=== PATIENT | male | born 1945 | race Caucasian/White ===

== ENCOUNTER 2018-09-18 09:14 | Inpatient (IN) | payer OTHER, BC ==
--- NOTE | 2018-09-18 09:59 | PDOC ---
History of Present Illness - General Chief Complaint: Chronic pain Stated Complaint: SENT BY PCP Time Seen by Provider: 09/18/18 09:35 History Source: Patient Exam Limitations: No Limitations - History of Present Illness Initial Comments: 09/18/18 09:53 73y M hx of glaucoma BPH, DM, presents with back pain w/ L4/L5 radiculopathy with progressive pain and weakness - was seen by his orthopedic doctor and sent to the ED for evaluation. Pain radiates down the L leg, Pt notes that it has gotten worsening apin and it is more difficult to ambulate due to pain and weakness on his L leg. Pt was scheduled for disctectomy and fusion of L4/5. 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 Pt denies any fever/chills,cough, cp, n/v, abd pain, back pain, urinary or bowel incontinence (has baseline difficulty urinating c/w his bph, but no changes), dysuria. social: retired, denies recreational drug use family hx: reviewed and noncontributory Ortho: Dr French No PMD Past History - Past Medical History Allergies/Adverse Reactions: Allergies Allergy/AdvReac Type Severity Reaction Status Date / Time No Known Allergies Allergy Verified 09/18/18 09:18 Home Medications: Ambulatory Orders Cyclobenzaprine HCl 10 mg PO DAILY 09/18/18 Glyburide 2.5 mg PO BID 09/18/18 Oxycodone HCl/Acetaminophen [Oxycodone-Acetaminophen 10-325] 1 each PO BID PRN 09/18/18 Sitagliptin Phos/Metformin HCl [Janumet 50-1,000 mg Tablet] 1 each PO BID COPD: No Diabetes: Yes Other medical history: l4, l5 disc issues - Suicide/Smoking/Psychosocial Hx Smoking History: Never smoked Hx Alcohol Use: No Drug/Substance Use Hx: No Review of Systems - Review of Systems Able to Perform ROS?: Yes Comments:: 09/18/18 10:38 Constitutional - no reported Fever, Chills, HEENT: no reported vision changes, sore throat Respiratory: no reported cough, sob, hemoptysis Cardiac: no reported chest pain, palpitations, light headedness, leg swelling Abd/GI: no reported abd pain, nausea, vomiting, blood per rectum, melena, diarrhea : no reported dysuria, frequency, discharge Musculskelatal - +back pain, L leg pain/weakness no reported joint swelling skin - no reported bruising, erythema, rash neurological: no reported headache, numbness, tingling, ataxia, hematologic: no reported easy bruising, easy bleeding *Physical Exam - Vital Signs Last Vital Signs Temp Pulse Resp BP Pulse Ox 98.9 F 88 16 127/79 99 09/18/18 09:15 09/18/18 09:15 09/18/18 09:15 09/18/18 09:15 09/18/18 09:15 - Physical Exam Comments: 09/18/18 10:39 GENERAL: The patient is awake, alert, and fully oriented, Nontoxic - in no acute distress. HEAD: Normocephalic, atraumatic. EYES: extraocular movements intact, sclera anicteric, conjunctiva clear. ENT: Normal voice, Moist mucous membranes. NECK: Normal range of motion, supple LUNGS: Breath sounds equal, clear to auscultation bilaterally. No wheezes, no rhonchi, no rales. HEART: Regular rate and rhythm, normal S1 and S2 without murmur, rub or gallop. ABDOMEN: Soft, nontender, normoactive bowel sounds. No guarding, no rebound. . No CVA tenderness EXTREMITIES: no focal ttp spine, no erythema/induration/fluctuance/stepoffs, NEUROLOGICAL: No facial assymetry, Normal speech, LLE 5-/5 (possibly secondary to pain), RLE 5/5, sensation intact throughout PSYCH: Normal mood, normal affect. SKIN: Warm, Dry, normal turgor, Moderate Sedation - Procedure Monitoring Vital Signs: Procedure Monitoring Vital Signs Temperature 98.9 F 09/18/18 09:15 Pulse Rate 88 09/18/18 09:15 Respiratory Rate 16 09/18/18 09:15 Blood Pressure 127/79 09/18/18 09:15 O2 Sat by Pulse Oximetry (%) 99 09/18/18 09:15 Heart Score/ECG Review - ECG Impressions Comment:: 09/18/18 10:42 Twelve-lead EKG was performed and reviewed by me. There is normal sinus rhythm with a normal rate. Rate of 88 Left Anterior fascicular block No ST changes suggestive of acute ischemia ED Treatment Course - LABORATORY CBC & Chemistry Diagram: 09/18/18 10:32 09/18/18 10:32 Medical Decision Making - Medical Decision Making 09/18/18 10:40 73y M hx presenting with worsening back pain and L leg weakness plan for surgery by ortho on thursday no signs of cauda equina will obtain preop labs pain control anticipate admission 09/18/18 12:36 The patient's blood work was reviewed and was unremarkable will admit the patient for further management of his back pain and pending surgery Thursday by Dr. Wen The case was discussed with Dr. Ron, agreed with admisison for further management stable for med surg Case discussed in detail with admitting physician including history, physical exam and ancillary studies. Admitting physician has assumed care for the patient, will follow all pending diagnostics and will complete the evaluation and treatment. *DC/Admit/Observation/Transfer Diagnosis at time of Disposition: Back pain at L4-L5 level Radiculopathy Qualifiers: Spinal region: lumbar Qualified Code(s): M54.16 - Radiculopathy, lumbar region - Discharge Dispostion Condition at time of disposition: Stable Decision to Admit order: Yes - Referrals Referrals: Ramiro Wen MD [Primary Care Provider] - - Patient Instructions - Post Discharge Activity
[2018-09-18] MEDS ORDERED: morphine CARPU-JECT 2 MG/1 ML DISP.SYRIN IVPUSH ONE (10:42)
[2018-09-18 10:54] LABS: BASO % 0.2 % (0-2.0); HEMATOCRIT 39.5 % (35.4-49); MCH 30.1 pg (25.7-33.7); MCHC 35.4 g/dl (32.0-35.9); MEAN CELL VOLUME 85.1 fl (80-96); MEAN PLT VOLUME 8.8 fl (7.5-11.1); MONO % 7.1 % (3.8-10.2); NEUT % 66.7 % (42.8-82.8); PLATELET COUNT 145 K/MM3 (134-434); RBC 4.64 M/mm3 (4.00-5.60); RDW 13.9 % (11.9-15.9)
[2018-09-18 11:08] LABS: INR 1.13 (0.83-1.09); PROTHROMBIN TIME (PATIENT) 13.3 SEC (9.7-13.0)
[2018-09-18 11:27] LABS: ALBUMIN 3.8 g/dl (3.4-5.0); ALK PHOS 103 U/L (45-117); ANION GAP 6 MMOL/L (8-16); BILIRUBIN,TOTAL 1.5 mg/dL (0.2-1); BLOOD UREA NITROGEN 17 mg/dL (7-18); CHLORIDE 102 mmol/L (98-107); CO2 29 mmol/L (21-32); CREATININE 0.9 mg/dL (0.55-1.3); GLUCOSE,RANDOM 129 mg/dL (74-106); POTASSIUM 3.6 mmol/L (3.5-5.1); SGOT/AST 10 U/L (15-37); SGPT/ALT 21 U/L (13-61); SODIUM 137 mmol/L (136-145); TOT PROT 6.9 g/dl (6.4-8.2)
[2018-09-18] MEDS ORDERED: MORPHINE SULFATE 2 MG/ML VIAL ONE (11:37)
[2018-09-18 12:16] LABS: URINE APPEARANCE CLEAR; URINE BILIRUBIN NEGATIVE (<2.0 mg/dL); URINE COLOR LTYELLOW; URINE GLUCOSE (UA) 3+ (NEGATIVE); URINE KETONE NEGATIVE (NEGATIVE); URINE LEUK ESTERASE NEGATIVE (NEGATIVE); URINE NITRITE NEGATIVE (NEGATIVE); URINE PROTEIN NEGATIVE (NEGATIVE); URINE UROBILINOGEN NEGATIVE mg/dL (0.2-1.0)
[2018-09-18] MEDS ORDERED: MORPHINE SULFATE 2 MG/ML VIAL IVPUSH PRN (13:17)
--- NOTE | 2018-09-18 13:22 | HP ---
CHIEF COMPLAINT: back pain PCP: HISTORY OF PRESENT ILLNESS: The patient is a 73 year old Omani speaking male with a PMH of back pain, s/p surgery in 1995, DMII, glaucoma, BPH that was referred to the hospital by his Orthopedic Surgeon for L4 L5 fusion due to radiculopathy and weakness in left lower extremity. The patient has been complaining of back pain and weakness since July 2017. He went to ED in [place] where he was given injections and had x ray done. After he came back to [place], he started following Dr Wen, had imaging studies done and was referred to [facility] for surgery. The patient is complaining of severe lower back pain; 5/10 when sitting and 10/ 10 when walking. It is located in lower back, radiating to LLE, associated with weakness. He denies numbness, paresthesia. The patient denies trauma, fever, chills, chest pain, palpitations, urinary/bowel incontinence. 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 Family History: parents: due to TB grandmother: DM siblings: DMII 2 healthy children Allergies No Known Allergies Allergy (Verified 09/18/18 09:18) HOME MEDICATIONS: Home Medications Medication Instructions Recorded Cyclobenzaprine HCl 10 mg PO DAILY 09/18/18 Glyburide 2.5 mg PO BID 09/18/18 Oxycodone HCl/Acetaminophen 1 each PO BID PRN 09/18/18 [Oxycodone-Acetaminophen 10-325] Sitagliptin Phos/Metformin HCl 1 each PO BID 09/18/18 [Janumet 50-1,000 mg Tablet] REVIEW OF SYSTEMS CONSTITUTIONAL: Absent: fever, chills, diaphoresis, generalized weakness, malaise, loss of appetite, weight change HEENT: Absent: rhinorrhea, throat pain, throat swelling, difficulty swallowing, mouth swelling CARDIOVASCULAR: Absent: chest pain, syncope, palpitations, irregular heart rate, lightheadedness , peripheral edema RESPIRATORY: Absent: cough, shortness of breath, dyspnea with exertion, orthopnea, wheezing GASTROINTESTINAL: Absent: abdominal pain, abdominal distension, nausea, vomiting, diarrhea, constipation, GENITOURINARY: Absent: dysuria, frequency, urgency, hesitancy, hematuria, flank pain MUSCULOSKELETAL: back pain, left leg pain and weakness Absent: myalgia, arthralgia, joint swelling, neck pain SKIN: Absent: rash, itching, pallor NEUROLOGIC: Absent: headache, focal weakness or paresthesias, dizziness, unsteady gait, seizure, mental status changes, bladder or bowel incontinence PSYCHIATRIC: Absent: anxiety, depression. PHYSICAL EXAMINATION Vital Signs - 24 hr 09/18/18 09:15 Temperature 98.9 F Pulse Rate 88 Respiratory 16 Rate Blood Pressure 127/79 O2 Sat by Pulse 99 Oximetry (%) GENERAL: Awake, alert, and fully oriented, in no acute distress. HEAD: Normal with no signs of trauma. EYES: Extraocular movements intact, sclera anicteric, conjunctiva clear. EARS, NOSE, THROAT: Moist mucous membranes. NECK: Normal range of motion, supple without lymphadenopathy, JVD, or masses. LUNGS: Breath sounds equal, clear to auscultation bilaterally. No wheezes, and no crackles. HEART: Regular rate and rhythm, normal S1 and S2 without murmur, rub or gallop. ABDOMEN: Soft, nontender, not distended, normoactive bowel sounds, no guarding, no rebound, no masses. MUSCULOSKELETAL: Normal range of motion at all joints. UPPER EXTREMITIES:No peripheral edema. LOWER EXTREMITIES: 2+ pulses, no peripheral edema. NEUROLOGICAL: Cranial nerves II-XII intact. Normal speech. PSYCHIATRIC: Cooperative. Good eye contact. Appropriate mood and affect. SKIN: Warm, dry, normal turgor, no rashes or lesions noted. Laboratory Results - last 24 hr 09/18/18 09/18/18 09/18/18 10:32 10:32 10:32 WBC 6.0 RBC 4.64 Hgb 14.0 Hct 39.5 MCV 85.1 MCH 30.1 MCHC 35.4 RDW 13.9 Plt Count 145 MPV 8.8 Absolute Neuts (auto) 4.0 Neutrophils % 66.7 Lymphocytes % 25.0 Monocytes % 7.1 Eosinophils % 1.0 Basophils % 0.2 Nucleated RBC % 0 PT with INR INR Sodium 137 Potassium 3.6 Chloride 102 Carbon Dioxide 29 Anion Gap 6 L BUN 17 Creatinine 0.9 Creat Clearance w eGFR 82.49 Random Glucose 129 H Calcium 9.0 Total Bilirubin 1.5 H AST 10 L ALT 21 Alkaline Phosphatase 103 Total Protein 6.9 Albumin 3.8 Urine Color Urine Appearance Urine pH Ur Specific Gonzales Urine Protein Urine Glucose (UA) Urine Ketones Urine Blood Urine Nitrite Urine Bilirubin Urine Urobilinogen Ur Leukocyte Esterase Blood Type O POSITIVE Antibody Screen Negative 09/18/18 09/18/18 10:32 11:32 WBC RBC Hgb Hct MCV MCH MCHC RDW Plt Count MPV Absolute Neuts (auto) Neutrophils % Lymphocytes % Monocytes % Eosinophils % Basophils % Nucleated RBC % PT with INR 13.30 H INR 1.13 H Sodium Potassium Chloride Carbon Dioxide Anion Gap BUN Creatinine Creat Clearance w eGFR Random Glucose Calcium Total Bilirubin AST ALT Alkaline Phosphatase Total Protein Albumin Urine Color Ltyellow Urine Appearance Clear Urine pH 6.0 Ur Specific Gonzales 1.011 Urine Protein Negative Urine Glucose (UA) 3+ H Urine Ketones Negative Urine Blood Negative Urine Nitrite Negative Urine Bilirubin Negative Urine Urobilinogen Negative Ur Leukocyte Esterase Negative Blood Type Antibody Screen ASSESSMENT/PLAN: The patient is a 73 year old O[place]i speaking male with a PMH of back pain, s/p surgery in 1995, DMII, glaucoma, BPH that was referred to the hospital for L4 L5 fusion due to radiculopathy and weakness in left lower extremity. L4-5 radiculopathy: -the patient is likely to be operated on Thursday -we will continue Toradol 30 mg IV -continue Cyclobenzaprine 5 mg -type and screen -coags -EKG, CBC, CMP reviewed DMII: -ISS ACHS -BGM ACHS -HgA1C -hold home meds BPH: -no meds at home Glaucoma; -cont home meds F/E/N; no/no changes/diabetic diet DVT PPX; heparin sq scds Dispo: med surg Problem List - Problem (1) Back pain at L4-L5 level Code(s): M54.5 - LOW BACK PAIN (2) Radiculopathy Code(s): M54.10 - RADICULOPATHY, SITE UNSPECIFIED Qualifiers: Spinal region: lumbar Qualified Code(s): M54.16 - Radiculopathy, lumbar region Visit type - Emergency Visit Emergency Visit: Yes ED Registration Date: 09/18/18 Care time: The patient presented to the Emergency Department on the above date and was hospitalized for further evaluation of their emergent condition. - New Patient This patient is new to me today: Yes Date on this admission: 09/18/18 - Critical Care Critical Care patient: No
[2018-09-18] MEDS ORDERED: ONDANSETRON 4 MG/2 ML VIAL IVPUSH PRN (14:33)
[2018-09-18 14:39] VITALS: BMI 32.8
[2018-09-18] MEDS ORDERED: KETOROLAC TROMETHAMINE 30 MG/1 ML VIAL IVPUSH PRN (14:39)
[2018-09-18] MEDS: HEPARIN NA (PORCINE) 5,000 UNITS/ML 1ML VIAL SQ SCH ×2 (15:57→22:38)
[2018-09-18] MEDS: CYCLOBENZAPRINE HCL 5 MG TABLET PO SCH ×2 (15:57→22:37)
--- NOTE | 2018-09-18 16:22 | PN ---
Teaching Attending Note Name of Resident: Polina Neal ATTENDING PHYSICIAN STATEMENT I saw and evaluated the patient. I reviewed the resident's note and discussed the case with the resident. I agree with the resident's findings and plan as documented. SUBJECTIVE: Complains of lower back pain radiating down Left leg. No fever/ chills. No weakness/numbness. No bladder/bowel dysfunction. OBJECTIVE: Afebrile, Hemodynamically Stable Last Vital Signs Temp Pulse Resp BP Pulse Ox 99.2 F 100 H 99 H 116/74 99 09/18/18 15:48 09/18/18 15:48 09/18/18 14:19 09/18/18 15:48 09/18/18 09:15 HEENT - Atraumatic, Normocephalic Heart - S1, S2, RRR Lungs - clear to auscultation Abdomen - soft, non-tender. Bowel Sounds normal. Extremities - No calf tenderness. No edema. Neuro - Prior normal all extremities, limited exam LLE mobility due to pain. No sensory deficit. Laboratory Results - last 24 hr 09/18/18 09/18/18 09/18/18 10:32 10:32 10:32 WBC 6.0 RBC 4.64 Hgb 14.0 Hct 39.5 MCV 85.1 MCH 30.1 MCHC 35.4 RDW 13.9 Plt Count 145 MPV 8.8 Absolute Neuts (auto) 4.0 Neutrophils % 66.7 Lymphocytes % 25.0 Monocytes % 7.1 Eosinophils % 1.0 Basophils % 0.2 Nucleated RBC % 0 PT with INR INR Sodium 137 Potassium 3.6 Chloride 102 Carbon Dioxide 29 Anion Gap 6 L BUN 17 Creatinine 0.9 Creat Clearance w eGFR 82.49 Random Glucose 129 H Calcium 9.0 Total Bilirubin 1.5 H AST 10 L ALT 21 Alkaline Phosphatase 103 Total Protein 6.9 Albumin 3.8 Urine Color Urine Appearance Urine pH Ur Specific [place] Urine Protein Urine Glucose (UA) Urine Ketones Urine Blood Urine Nitrite Urine Bilirubin Urine Urobilinogen Ur Leukocyte Esterase Blood Type O POSITIVE Antibody Screen Negative 09/18/18 09/18/18 09/18/18 10:32 11:32 13:05 WBC RBC Hgb Hct MCV MCH MCHC RDW Plt Count MPV Absolute Neuts (auto) Neutrophils % Lymphocytes % Monocytes % Eosinophils % Basophils % Nucleated RBC % PT with INR 13.30 H INR 1.13 H Sodium Potassium Chloride Carbon Dioxide Anion Gap BUN Creatinine Creat Clearance w eGFR Random Glucose Calcium Total Bilirubin AST ALT Alkaline Phosphatase Total Protein Albumin Urine Color Ltyellow Urine Appearance Clear Urine pH 6.0 Ur Specific [place] 1.011 Urine Protein Negative Urine Glucose (UA) 3+ H Urine Ketones Negative Urine Blood Negative Urine Nitrite Negative Urine Bilirubin Negative Urine Urobilinogen Negative Ur Leukocyte Esterase Negative Blood Type O POSITIVE Antibody Screen Current Medications Generic Name Dose Route Start Last Admin Trade Name Freq PRN Reason Stop Dose Admin Cyclobenzaprine HCl 5 mg 09/18/18 14:00 09/18/18 15:57 Cyclobenzaprine Hcl PO 5 mg TID SEAN Administration Heparin Sodium (Porcine) 5,000 unit 09/18/18 14:00 09/18/18 15:57 Heparin - SQ 5,000 unit TID SEAN Administration Insulin Aspart 1 vial 09/18/18 16:30 Novolog Vial Sliding Scale - SQ ACHS [facility] Protocol Ketorolac Tromethamine 30 mg 09/18/18 14:39 Toradol Injection - IVPUSH 09/23/18 14:38 Q6H PRN PAIN LEVEL 4 - 6 Non-Formulary Medication 1 drop 09/18/18 22:00 Travoprost [Travatan Z] OU [facility] Ondansetron HCl 4 mg 09/18/18 14:33 Zofran Injection IVPUSH Q6H PRN NAUSEA AND/OR VOMITING Home Medications Medication Instructions Recorded Cyclobenzaprine HCl 10 mg PO DAILY 09/18/18 Glyburide 2.5 mg PO BID 09/18/18 Oxycodone HCl/Acetaminophen 1 each PO BID PRN 09/18/18 [Oxycodone-Acetaminophen 10-325] Sitagliptin Phos/Metformin HCl 1 each PO BID 09/18/18 [Janumet 50-1,000 mg Tablet] Travoprost [Travatan Z] HS 09/18/18 ASSESSMENT/PLAN 73 year old male with history of DJD Spine s/p surgery 1995, DM 2, BPH, Glaucoma , Blindness L eye, sent to ED by Spinal Surgery for admission for severe back pain (radiating to LLE with progressive LLE weakness) prior to scheduled orthopedic surgery 09/20/18 1. Intractable Back Pain secondary to L4-5 radiculopathy For Spinal Surgery consultation for evaluation and possible L4/5 fusion on Had nausea/vomiting with Morphine Will give trial of IV toradol and Flexeril PT 2. DM 2 - Hold Glyburide and Janumet - Maintain on sliding scale. DVT Px - Heparin SQ
[2018-09-18] MEDS ORDERED: INSULIN (NOVOLOG) ASPART 100 UNITS/ML 10ML VIAL ONE (16:49)
[2018-09-18] MEDS: INSULIN SLIDING SCALE (NOVOLOG) 1 VIAL SQ SCH ×2 (17:43→22:38)
[2018-09-18] MEDS ORDERED: DOCUSATE SODIUM 100 MG CAPSULE (FP) PO PRN (19:48)
[2018-09-18] MEDS ORDERED: SENNOSIDES 8.6MG TABLET (FP) PO PRN (19:49)
[2018-09-18] MEDS ORDERED: POLYETHYLENE GLYCOL 3350 119 GM BTL PO PRN (19:49)
[2018-09-18] MEDS ORDERED: PT OWN MED DRAWER 7, Y5N ONE (21:52)
[2018-09-18] MEDS ORDERED: PATIENT'S OWN MEDICATION (NON-FORMULARY) (Travoprost [Travatan Z] 1 DROP) OU SCH (22:00)
[2018-09-18] MEDS ORDERED: TRAVOPROST SCH (22:00)
[2018-09-18] MEDS ORDERED: ACETAMINOPHEN 325 MG TABLET (FP) PO ONE (22:29)
[2018-09-19] MEDS: INSULIN SLIDING SCALE (NOVOLOG) 1 VIAL SQ SCH ×4 (06:06→22:48)
[2018-09-19] MEDS: CYCLOBENZAPRINE HCL 5 MG TABLET PO SCH ×3 (06:06→22:48)
[2018-09-19] MEDS: HEPARIN NA (PORCINE) 5,000 UNITS/ML 1ML VIAL SQ SCH ×3 (06:06→22:48)
[2018-09-19 08:38] LABS: INR 1.18 (0.83-1.09)
[2018-09-19 08:40] LABS: ACTIVATED PTT 34.6 SECONDS (25.2-36.5)
[2018-09-19 08:49] LABS: ALBUMIN 3.4 g/dl (3.4-5.0); ALK PHOS 82 U/L (45-117); ANION GAP 8 MMOL/L (8-16); BILIRUBIN,TOTAL 2.2 mg/dL (0.2-1); BLOOD UREA NITROGEN 17 mg/dL (7-18); CALCIUM 8.4 mg/dL (8.5-10.1); CHLORIDE 103 mmol/L (98-107); CO2 26 mmol/L (21-32); CREATININE 0.8 mg/dL (0.55-1.3); GLUCOSE,RANDOM 136 mg/dL (74-106); MAGNESIUM 1.7 mg/dL (1.8-2.4); PHOSPHOROUS 3.2 mg/dL (2.5-4.9); POTASSIUM 3.7 mmol/L (3.5-5.1); SGOT/AST 6 U/L (15-37); SGPT/ALT 19 U/L (13-61); SODIUM 138 mmol/L (136-145); TOT PROT 6.4 g/dl (6.4-8.2)
[2018-09-19] MEDS ORDERED: MAGNESIUM SULF 50% (8.12 MEQ/2 ML-1 GM VIAL) IVPB ONE (08:55)
[2018-09-19 10:33] LABS: BILIRUBIN,DIRECT 0.4 mg/dL (0.0-0.2)
--- NOTE | 2018-09-19 11:11 | EKG ---
Test Reason : Blood Pressure : / mmHG Vent. Rate : 088 BPM Atrial Rate : 088 BPM P-R Int : 170 ms QRS Dur : 102 ms QT Int : 390 ms P-R-T Axes : 032 -51 039 degrees QTc Int : 471 ms NORMAL SINUS RHYTHM LEFT ANTERIOR FASCICULAR BLOCK ABNORMAL ECG NO PREVIOUS ECGS AVAILABLE Confirmed by MD HECTOR, CLARITA ([id number]) on 09/19/2018 11:11:48 AM Referred By: Confirmed By:CLARITA YOUNG MD
[2018-09-19] MEDS ORDERED: PT OWN MED DRAWER 7, Y5N ONE ×2 (13:12→22:21)
--- NOTE | 2018-09-19 13:43 | PN ---
Progress Note (short form) - Note Progress Note: SUBJECTIVE: Reports some improvement of his lower back pain radiating down Left leg. No fever/chills. No weakness/numbness. No bladder/bowel dysfunction. OBJECTIVE: Afebrile, Hemodynamically Stable Last Vital Signs Temp Pulse Resp BP Pulse Ox 97.6 F 84 18 101/72 99 09/19/18 07:55 09/19/18 07:55 09/19/18 07:55 09/19/18 07:55 09/18/18 09:15 HEENT - Atraumatic, Normocephalic Heart - S1, S2, RRR Lungs - clear to auscultation Abdomen - soft, non-tender. Bowel Sounds normal. Extremities - No calf tenderness. No edema. Neuro - Mild decrease in power LLE due to pain. No sensory deficit. Laboratory Results - last 24 hr 09/18/18 09/18/18 09/18/18 13:05 16:28 22:36 PT with INR INR PTT (Actin FS) Sodium Potassium Chloride Carbon Dioxide Anion Gap BUN Creatinine Creat Clearance w eGFR POC Glucometer 216 165 Random Glucose Hemoglobin A1c % Calcium Phosphorus Magnesium Total Bilirubin Direct Bilirubin AST ALT Alkaline Phosphatase Total Protein Albumin Blood Type O POSITIVE 09/19/18 09/19/18 09/19/18 06:05 06:50 06:50 PT with INR 14.00 H INR 1.18 H PTT (Actin FS) 34.6 Sodium 138 Potassium 3.7 Chloride 103 Carbon Dioxide 26 Anion Gap 8 BUN 17 Creatinine 0.8 Creat Clearance w eGFR 94.50 POC Glucometer 149 Random Glucose 136 H Hemoglobin A1c % Calcium 8.4 L Phosphorus 3.2 Magnesium 1.7 L Total Bilirubin 2.2 H Direct Bilirubin 0.4 H AST 6 L ALT 19 Alkaline Phosphatase 82 Total Protein 6.4 Albumin 3.4 Blood Type 09/19/18 09/19/18 06:50 11:53 PT with INR INR PTT (Actin FS) Sodium Potassium Chloride Carbon Dioxide Anion Gap BUN Creatinine Creat Clearance w eGFR POC Glucometer 202 Random Glucose Hemoglobin A1c % 7.0 H Calcium Phosphorus Magnesium Total Bilirubin Direct Bilirubin AST ALT Alkaline Phosphatase Total Protein Albumin Blood Type Current Medications Generic Name Dose Route Start Last Admin Trade Name Freq PRN Reason Stop Dose Admin Cyclobenzaprine HCl 5 mg 09/18/18 14:00 09/19/18 13:13 Cyclobenzaprine Hcl PO 5 mg TID SEAN Administration Docusate Sodium 100 mg 09/18/18 19:48 09/19/18 11:10 Colace - PO 100 mg Q12H PRN Administration CONSTIPATION Heparin Sodium (Porcine) 5,000 unit 09/19/18 07:59 09/19/18 13:13 Heparin - SQ 5,000 unit TID SEAN Administration Insulin Aspart 1 vial 09/18/18 16:30 09/19/18 11:55 Novolog Vial Sliding Scale - SQ 4 units ACHS SEAN Administration Protocol Ketorolac Tromethamine 30 mg 09/18/18 14:39 09/19/18 11:09 Toradol Injection - IVPUSH 09/23/18 14:38 30 mg Q6H PRN Administration PAIN LEVEL 4 - 6 Non-Formulary Medication 1 drop 09/18/18 22:00 Travoprost [Travatan Z] OU [facility] SEAN Ondansetron HCl 4 mg 09/18/18 14:33 Zofran Injection IVPUSH Q6H PRN NAUSEA AND/OR VOMITING Polyethylene Glycol 17 gm 09/18/18 19:49 09/19/18 11:08 Miralax (For Daily Use) - PO 17 gm DAILY PRN Administration CONSTIPATION Senna 2 tab 09/18/18 19:49 Senna - PO HS PRN CONSTIPATION ASSESSMENT/PLAN 73 year old male with history of DJD Spine s/p surgery 1995, DM 2, BPH, Glaucoma , Blindness L eye, sent to ED by Spinal Surgery for admission for severe back pain (radiating to LLE with progressive LLE weakness) prior to scheduled orthopedic surgery 09/20/18 1. Intractable Back Pain secondary to L4-5 radiculopathy For Spinal Surgery consultation for evaluation and possible L4/5 fusion on Had nausea/vomiting with Morphine On IV toradol and Flexeril PT after Spine Sx 2. DM 2 - Hold Glyburide and Janumet - Maintain on sliding scale. DVT Px - Heparin SQ (hold tonight prior to possible spinal surgery in AM) Visit type - Emergency Visit Emergency Visit: Yes ED Registration Date: 09/18/18 Care time: The patient presented to the Emergency Department on the above date and was hospitalized for further evaluation of their emergent condition. - New Patient This patient is new to me today: No - Critical Care Critical Care patient: No - Discharge Referral Referred to [facility] No
[2018-09-20] MEDS: CYCLOBENZAPRINE HCL 5 MG TABLET PO SCH ×3 (06:56→22:26)
[2018-09-20] MEDS: INSULIN SLIDING SCALE (NOVOLOG) 1 VIAL SQ SCH ×4 (06:59→22:26)
--- NOTE | 2018-09-20 07:43 | PN ---
Physical Exam: SUBJECTIVE: Patient seen and examined at bedside. no acute events overnight. NPO for surgery. some improvement of lower back pain radiating down Left leg. No fever/chills. No weakness/numbness. No bladder/bowel dysfunction or n/v/d. OBJECTIVE: Vital Signs Period Temp Pulse Resp BP Sys/Gonzalez Pulse Ox Last 24 Hr 97.6 F-98.4 F 79-84 18-19 101-111/68-74 GENERAL: AOX3 NAD HEAD: NCAT EYES: Extraocular movements intact, sclera anicteric, conjunctiva clear. EARS, NOSE, THROAT: MMM NECK: Normal range of motion, supple without lymphadenopathy, JVD, or masses. LUNGS: CTAB HEART: RRR, normal S1 and S2 without murmur, rub or gallop. ABDOMEN: Soft, NTND normoactive bowel sounds, no guarding, no rebound, no masses. UPPER EXTREMITIES:No peripheral edema. LOWER EXTREMITIES: 2+ pulses, no peripheral edema. decreased ROM and power LLE 2 /2 pain radiating from back No sensory deficit. NEUROLOGICAL: Cranial nerves II-XII intact. Normal speech. No sensory deficit. PSYCHIATRIC: Cooperative. Good eye contact. Appropriate mood and affect. SKIN: Warm, dry, normal turgor, no rashes or lesions noted. Laboratory Results - last 24 hr 09/19/18 09/19/18 09/19/18 06:50 06:50 06:50 PT with INR 14.00 H INR 1.18 H PTT (Actin FS) 34.6 Sodium 138 Potassium 3.7 Chloride 103 Carbon Dioxide 26 Anion Gap 8 BUN 17 Creatinine 0.8 Creat Clearance w eGFR 94.50 POC Glucometer Random Glucose 136 H Hemoglobin A1c % 7.0 H Calcium 8.4 L Phosphorus 3.2 Magnesium 1.7 L Total Bilirubin 2.2 H Direct Bilirubin 0.4 H AST 6 L ALT 19 Alkaline Phosphatase 82 Total Protein 6.4 Albumin 3.4 09/19/18 09/19/18 09/19/18 11:53 16:26 22:47 PT with INR INR PTT (Actin FS) Sodium Potassium Chloride Carbon Dioxide Anion Gap BUN Creatinine Creat Clearance w eGFR POC Glucometer 202 141 142 Random Glucose Hemoglobin A1c % Calcium Phosphorus Magnesium Total Bilirubin Direct Bilirubin AST ALT Alkaline Phosphatase Total Protein Albumin 09/20/18 06:58 PT with INR INR PTT (Actin FS) Sodium Potassium Chloride Carbon Dioxide Anion Gap BUN Creatinine Creat Clearance w eGFR POC Glucometer 156 Random Glucose Hemoglobin A1c % Calcium Phosphorus Magnesium Total Bilirubin Direct Bilirubin AST ALT Alkaline Phosphatase Total Protein Albumin Active Medications Generic Name Dose Route Start Last Admin Trade Name Freq PRN Reason Stop Dose Admin Cyclobenzaprine HCl 5 mg 09/18/18 14:00 09/20/18 06:56 Cyclobenzaprine Hcl PO Not Given TID SEAN Docusate Sodium 100 mg 09/18/18 19:48 09/19/18 11:10 Colace - PO 100 mg Q12H PRN Administration CONSTIPATION Heparin Sodium (Porcine) 5,000 unit 09/19/18 07:59 09/19/18 22:48 Heparin - SQ 5,000 unit TID SEAN Administration Insulin Aspart 1 vial 09/18/18 16:30 09/20/18 06:59 Novolog Vial Sliding Scale - SQ 2 units ACHS SEAN Administration Protocol Ketorolac Tromethamine 30 mg 09/18/18 14:39 09/19/18 11:09 Toradol Injection - IVPUSH 09/23/18 14:38 30 mg Q6H PRN Administration PAIN LEVEL 4 - 6 Non-Formulary Medication 1 drop 09/18/18 22:00 Travoprost [Travatan Z] OU HS ESAN Ondansetron HCl 4 mg 09/18/18 14:33 Zofran Injection IVPUSH Q6H PRN NAUSEA AND/OR VOMITING Polyethylene Glycol 17 gm 09/18/18 19:49 09/19/18 11:08 Miralax (For Daily Use) - PO 17 gm DAILY PRN Administration CONSTIPATION Senna 2 tab 09/18/18 19:49 Senna - PO HS PRN CONSTIPATION ASSESSMENT/PLAN: 73 yo [place]ian speaking M with PMH of DJD Spine, s/p surgery in 1995, DMII, glaucoma, Blindness L eye, BPH that was referred to the hospital for L4 L5 fusion due to severe back pain w/ radiculopathy radiating to LLE and weakness in LLE. Intractable Back Pain 2/2 L4-5 radiculopathy : -Spinal Surgery consultation -possible L4/5 fusion today 09/20/18 in afternoon -Had nausea/vomiting with Morphine -c/w Toradol 30 mg IV -c/w Cyclobenzaprine 5 mg -PT after Spine Sx -incentive spirometer for post op -pain ctl for post op DMII: -ISS ACHS -BGM ACHS -HgA1C 7 -hold home meds BPH: -no meds at home Glaucoma; -cont home meds F/E/N; no IVF replete prn NPO for OR today DVT PPX; holding heparin sq for surgery today scds Dispo: med surg NPO for OR today Visit type - Emergency Visit Emergency Visit: Yes ED Registration Date: 09/18/18 Care time: The patient presented to the Emergency Department on the above date and was hospitalized for further evaluation of their emergent condition. - New Patient This patient is new to me today: Yes Date on this admission: 09/20/18 - Critical Care Critical Care patient: No
[2018-09-20 08:54] LABS: BASO % 0.8 % (0-2.0); EOS % 2.8 % (0-4.5); HEMOGLOBIN 13.5 GM/dL (11.7-16.9); LYMPH % 35.3 % (8-40); MCH 30.2 pg (25.7-33.7); MCHC 35.6 g/dl (32.0-35.9); MEAN CELL VOLUME 84.8 fl (80-96); MEAN PLT VOLUME 8.4 fl (7.5-11.1); MONO % 8.3 % (3.8-10.2); NEUT % 52.8 % (42.8-82.8); PLATELET COUNT 153 K/MM3 (134-434); RBC 4.49 M/mm3 (4.00-5.60); RDW 14.1 % (11.9-15.9); WHITE BLOOD COUNT 3.9 K/mm3 (4.0-10.0)
[2018-09-20 09:23] LABS: ALBUMIN 3.4 g/dl (3.4-5.0); ALK PHOS 82 U/L (45-117); ANION GAP 6 MMOL/L (8-16); BILIRUBIN,TOTAL 1.6 mg/dL (0.2-1); BLOOD UREA NITROGEN 26 mg/dL (7-18); CALCIUM 8.3 mg/dL (8.5-10.1); CHLORIDE 107 mmol/L (98-107); CO2 27 mmol/L (21-32); GLUCOSE,RANDOM 123 mg/dL (74-106); MAGNESIUM 1.9 mg/dL (1.8-2.4); POTASSIUM 3.7 mmol/L (3.5-5.1); SGOT/AST 8 U/L (15-37); SGPT/ALT 18 U/L (13-61); SODIUM 140 mmol/L (136-145); TOT PROT 6.4 g/dl (6.4-8.2)
[2018-09-20] MEDS ORDERED: LACTATED RINGERS SOLUTION 1,000 ML IV SCH ×2 (10:00→15:45)
[2018-09-20] MEDS ORDERED: PT OWN MED DRAWER 7, Y5N ONE (13:47)
[2018-09-20] MEDS ORDERED: THROMBIN (BOVINE) 5,000 UNIT VIAL TP ONE ×2 (14:09→22:04)
[2018-09-20] MEDS ORDERED: ONDANSETRON 4 MG/2 ML VIAL IVPUSH PRN (15:39)
[2018-09-20] MEDS ORDERED: PROMETHAZINE HCL 25 MG/1 ML VIAL IVPB PRN (15:39)
[2018-09-20] MEDS ORDERED: DEXAMETHASONE SOD PHOSPHATE 4 MG/1 ML VIAL IVPUSH PRN (15:39)
[2018-09-20] MEDS ORDERED: HYDROmorphone *PCA* 10MG/50ML DISP.SYRIN PCA SCH (15:45)
--- NOTE | 2018-09-20 18:45 | PN ---
Teaching Attending Note Name of Resident: Jose Gupta ATTENDING PHYSICIAN STATEMENT I saw and evaluated the patient. I reviewed the resident's note and discussed the case with the resident. I agree with the resident's findings and plan as documented. SUBJECTIVE: Reports improvement of his lower back pain radiating down Left leg. No fever/chills. No weakness/numbness. No bladder/bowel dysfunction. OBJECTIVE: Afebrile, Hemodynamically Stable Last Vital Signs Temp Pulse Resp BP Pulse Ox 98.4 F 82 19 111/70 95 09/20/18 15:18 09/20/18 15:18 09/19/18 20:54 09/20/18 15:18 09/20/18 09:00 HEENT - Atraumatic, Normocephalic Heart - S1, S2, RRR Lungs - clear to auscultation Abdomen - soft, non-tender. Bowel Sounds normal. Extremities - No calf tenderness. No edema. Neuro - Power normal all extremities. No sensory deficit. Laboratory Results - last 24 hr 09/19/18 09/20/18 09/20/18 22:47 06:58 08:40 WBC 3.9 L RBC 4.49 Hgb 13.5 Hct 38.0 MCV 84.8 MCH 30.2 MCHC 35.6 RDW 14.1 Plt Count 153 MPV 8.4 Absolute Neuts (auto) 2.1 Neutrophils % 52.8 D Lymphocytes % 35.3 D Monocytes % 8.3 Eosinophils % 2.8 D Basophils % 0.8 D Nucleated RBC % 0 Sodium Potassium Chloride Carbon Dioxide Anion Gap BUN Creatinine Creat Clearance w eGFR POC Glucometer 142 156 Random Glucose Calcium Phosphorus Magnesium Total Bilirubin AST ALT Alkaline Phosphatase Total Protein Albumin 09/20/18 09/20/18 08:40 11:08 WBC RBC Hgb Hct MCV MCH MCHC RDW Plt Count MPV Absolute Neuts (auto) Neutrophils % Lymphocytes % Monocytes % Eosinophils % Basophils % Nucleated RBC % Sodium 140 Potassium 3.7 Chloride 107 Carbon Dioxide 27 Anion Gap 6 L BUN 26 H Creatinine 1.0 Creat Clearance w eGFR 73.04 POC Glucometer 139 Random Glucose 123 H Calcium 8.3 L Phosphorus 3.0 Magnesium 1.9 Total Bilirubin 1.6 H AST 8 L ALT 18 Alkaline Phosphatase 82 Total Protein 6.4 Albumin 3.4 Current Medications Generic Name Dose Route Start Last Admin Trade Name Freq PRN Reason Stop Dose Admin Cyclobenzaprine HCl 5 mg 09/18/18 14:00 09/20/18 14:06 Cyclobenzaprine Hcl PO 5 mg TID [facility] Administration Dexamethasone Sodium Phosphate 4 mg 09/20/18 15:39 Decadron Injection - IVPUSH ONCE PRN NAUSEA AND/OR VOMITING Diphenhydramine HCl 12.5 mg 09/20/18 15:39 Benadryl Injection - IVPUSH ONCE PRN FOR ITCHING Docusate Sodium 100 mg 09/18/18 19:48 09/19/18 11:10 Colace - PO 100 mg Q12H PRN Administration CONSTIPATION Fentanyl 50 mcg 09/20/18 15:39 Sublimaze Injection - IVPUSH [id number] PRN PAIN-PACU ORDER X 4 DOSES ONLY Heparin Sodium (Porcine) 5,000 unit 09/19/18 07:59 09/19/18 22:48 Heparin - SQ 5,000 unit TID [facility] Administration Hydromorphone HCl 10 mg 09/20/18 15:45 Dilaudid Supervisor Fur Floor Worker - BACKUP ENGINEER 09/27/18 15:40 BACKUP ENGINEER [facility] Protocol Lactated Ringer's 1,000 mls @ 120 mls/hr 09/20/18 10:00 09/20/18 10:24 Lactated Ringers Solution IV 120 mls/hr ASDIR SEAN Administration Lactated Ringer's 1,000 mls @ 125 mls/hr 09/20/18 15:45 Lactated Ringers Solution IV ASDIR SEAN Insulin Aspart 1 vial 09/18/18 16:30 09/20/18 16:39 Novolog Vial Sliding Scale - SQ Not Given ACHS [facility] Protocol Ketorolac Tromethamine 30 mg 09/18/18 14:39 09/19/18 11:09 Toradol Injection - IVPUSH 09/23/18 14:38 30 mg Q6H PRN Administration PAIN LEVEL 4 - 6 Non-Formulary Medication 1 drop 09/18/18 22:00 Travoprost [Travatan Z] OU HS [facility] Ondansetron HCl 4 mg 09/18/18 14:33 Zofran Injection IVPUSH Q6H PRN NAUSEA AND/OR VOMITING Ondansetron HCl 4 mg 09/20/18 15:39 Zofran Injection IVPUSH Q4H PRN NAUSEA AND/OR VOMITING Polyethylene Glycol 17 gm 09/18/18 19:49 09/19/18 11:08 Miralax (For Daily Use) - PO 17 gm DAILY PRN Administration CONSTIPATION Promethazine HCl 12.5 mg 09/20/18 15:39 Phenergan Injection - IVPB Q6H PRN NAUSEA AND/OR VOMITING Senna 2 tab 09/18/18 19:49 Senna - PO HS PRN CONSTIPATION ASSESSMENT/PLAN 73 year old male with history of DJD Spine s/p surgery 1995, DM 2, BPH, Glaucoma , Blindness L eye, sent to ED by Spinal Surgery for admission for severe back pain (radiating to LLE with progressive LLE weakness) prior to scheduled orthopedic surgery 09/20/18 1. Intractable Back Pain secondary to L4-5 radiculopathy Scheduled for Spinal Surgery possible L4/5 fusion on 09/20/18 On toradol and Flexeril PT after Spine Sx 2. DM 2 - Glyburide and Janumet held - Maintained on sliding scale. DVT Px - Heparin SQ (held prior to spinal surgery 09/20)
--- NOTE | 2018-09-20 20:01 | PN ---
Progress Note (short form) - Note Progress Note: Patient admitted for the surgical treatment of a L4/5 discprolapse MRI significant changes at L5/S1 Patient admitted for intractable pain and associated recent increase in LE neurological weakness Medical clearance received General medical status well maintained Neuro Progressive weakness and early bladder incoordination SLR 30 degrees Lasegue+++ve MRI completed L4/5 disc prolapse wirh L5/S1 degeneration PLAN Admit for routine preop tests and medical clearance For L4/5 L5/S1 PLIF fusion
[2018-09-20] MEDS ORDERED: PROPOFOL 20 ML ONE ×7 (20:46→23:02)
[2018-09-20] MEDS ORDERED: ROCURONIUM BROMIDE 50 MG/5 ML VIAL ONE (20:46)
[2018-09-20] MEDS ORDERED: fentaNYL CITRATE 250 MCG/5 ML VIAL ONE ×2 (20:46→21:51)
[2018-09-20] MEDS ORDERED: MIDAZOLAM HCL 2 MG/2 ML SINGLE DOSE VIAL ONE (20:46)
[2018-09-20] MEDS ORDERED: LIDOCAINE HCL/PF 2% SDV 5ML VIAL ONE (20:53)
[2018-09-20] MEDS ORDERED: SODIUM CHLORIDE 0.9% P/F 10 ML VIAL IJ ONE ×2 (21:21→21:23)
[2018-09-20] MEDS ORDERED: ceFAZolin SODIUM 1 GM VIAL ONE (21:21)
[2018-09-20] MEDS ORDERED: ceFAZolin SODIUM 1 GM VIAL IVPB ONE (21:22)
[2018-09-20] MEDS ORDERED: VANCOMYCIN 1,000 MG VIAL (RESTRICTED TO ID ONLY) ONE (21:23)
[2018-09-20] MEDS ORDERED: DEXAMETHASONE SOD PHOSPHATE 4 MG/1 ML VIAL ONE ×2 (21:26→23:30)
[2018-09-20] MEDS ORDERED: VANCOMYCIN 1,000 MG VIAL (RESTRICTED TO ID ONLY) IVPB ONE (21:26)
[2018-09-20] MEDS ORDERED: ONDANSETRON 4 MG/2 ML VIAL ONE ×2 (21:26→23:30)
[2018-09-20] MEDS ORDERED: TRANEXAMIC ACID 1000 MG/10 ML VIAL ONE (21:27)
[2018-09-20] MEDS ORDERED: GLYCOPYRROLATE 0.2 MG/1 ML VIAL ONE (22:07)
[2018-09-20] MEDS ORDERED: NEOSTIGMINE METHYLSULFATE 0.5 MG/1 ML - 10 ML MDV ONE (22:07)
[2018-09-20] MEDS ORDERED: BUPIVACAINE HCL/PF 0.25% (2.5MG/ML) 10 ML VIAL ONE (23:26)
[2018-09-20] MEDS ORDERED: BUPIVACAINE LIPOSOME/PF (EXPAREL) 266 MG/20 ML VIAL ONE (23:26)
[2018-09-20] MEDS ORDERED: ACETAMINOPHEN INJECTION 100 ML IVPB ONE (23:27)
[2018-09-21] MEDS ORDERED: HYDROmorphone *PCA* 10MG/50ML DISP.SYRIN PCA ONE (00:01)
[2018-09-21] MEDS ORDERED: diazePAM 5 MG TABLET PO PRN (00:05)
--- NOTE | 2018-09-21 00:12 | OP ---
Operative Note - Note: Operative Date: 09/21/18 Pre-Operative Diagnosis: L4/5 Radiculopathy Operation: L4-S1 posterior lumbar interbody fusion Post-Operative Diagnosis: Same as Pre-op Surgeon: Ramiro Wen Systems Admin: Luis E Walsh Anesthesiologist/PASTRY SOUS CHEF: Pacheco Frey Anesthesia: General Operative Report Dictated: Yes
[2018-09-21] MEDS ORDERED: SENNOSIDES 8.6MG TABLET (FP) PO PRN (00:32)
[2018-09-21] MEDS ORDERED: KETOROLAC TROMETHAMINE 30 MG/1 ML VIAL IVPUSH PRN (00:32)
[2018-09-21] MEDS ORDERED: HYDROmorphone *PCA* 10MG/50ML DISP.SYRIN PCA SCH (00:32)
[2018-09-21] MEDS ORDERED: LACTATED RINGERS SOLUTION 1,000 ML IV SCH (00:32)
[2018-09-21] MEDS ORDERED: PROMETHAZINE HCL 25 MG/1 ML VIAL IVPB PRN (00:32)
[2018-09-21] MEDS ORDERED: DOCUSATE SODIUM 100 MG CAPSULE (FP) PO PRN ×2 (00:32→07:19)
[2018-09-21] MEDS ORDERED: ONDANSETRON 4 MG/2 ML VIAL IVPUSH PRN (00:32)
[2018-09-21] MEDS ORDERED: POLYETHYLENE GLYCOL 3350 119 GM BTL PO PRN (00:32)
[2018-09-21] MEDS ORDERED: PT OWN MED DRAWER 7, Y5N ONE ×2 (01:25→17:23)
--- NOTE | 2018-09-21 03:02 | PN ---
Progress Note (short form) - Note Progress Note: Paged because of an unwitnessed fall. Pt. was post-op and stated that he was trying to get up to go to the bathroom. Pt. states he braced himself has he slid down to the floor on his side. Per RN, noise was heard and immediately went to Pt.s room. Pt. states that he did not hit his head. BP: 134/79 and HR: 79. Pt. is alert and oriented x 3. Pt. confused, stating "I did not know I had surgery, no one explained that the surgery is over, Wake-up Edwin" DEJAH, ROCHELLE II -X11 intact. Pt. moving all extremities spontaneously. Pt. denies any numbness to the groin. Pt. denies any changes in vision, nausea or vomiting. Pt. denies any sensory or motor deficits and stated he did not hit his head or back. Back dressing clean, dry and intact. Will defer Head CT at this time and continue Q30min Neurovascular checks for the next 4 hours and then to resume normal neuro -vascular checks.
[2018-09-21] MEDS: INSULIN SLIDING SCALE (NOVOLOG) 1 VIAL SQ SCH ×4 (06:24→22:00)
[2018-09-21] MEDS: CYCLOBENZAPRINE HCL 10 MG TABLET (FP) PO SCH ×3 (06:24→21:19)
--- NOTE | 2018-09-21 07:23 | PN ---
Physical Exam: SUBJECTIVE: Patient seen and examined at bedside. overnight was post-op and had unwitnessed fall while going to bathroom, pt denied hitting his head or his back or having any sensory or motor deficits, events noted in Dr. Sesay note. POD1 L4-S1 posterior lumbar interbody fusion. much improvement of lower back pain w/ BRIDGE CLUB MANAGER . No fever/chills. No weakness/numbness. No bladder/bowel dysfunction or n/v/d. +flatus, tolerating PO OBJECTIVE: Vital Signs Period Temp Pulse Resp BP Sys/Gonzalez Pulse Ox Last 24 Hr 97.4 F-99.1 F 80-103 12-20 111-151/67-86 95-99 GENERAL: AOX3 NAD HEAD: NCAT EYES: Extraocular movements intact, sclera anicteric, conjunctiva clear. EARS, NOSE, THROAT: MMM NECK: Normal range of motion, supple without lymphadenopathy, JVD, or masses. LUNGS: CTAB HEART: RRR, normal S1 and S2 without murmur, rub or gallop. ABDOMEN: Soft, NTND normoactive bowel sounds, no guarding, no rebound, no masses. UPPER EXTREMITIES:No peripheral edema. LOWER EXTREMITIES: 2+ pulses, no peripheral edema. much improved ROM and power LLE, strength 5/5, No sensory deficit. NEUROLOGICAL: Cranial nerves II-XII intact. Normal speech. No sensory deficit. PSYCHIATRIC: Cooperative. Good eye contact. Appropriate mood and affect. SKIN: Warm, dry, normal turgor, no rashes or lesions noted. Laboratory Results - last 24 hr 09/20/18 09/20/18 09/20/18 08:40 08:40 11:08 WBC 3.9 L RBC 4.49 Hgb 13.5 Hct 38.0 MCV 84.8 MCH 30.2 MCHC 35.6 RDW 14.1 Plt Count 153 MPV 8.4 Absolute Neuts (auto) 2.1 Neutrophils % 52.8 D Lymphocytes % 35.3 D Monocytes % 8.3 Eosinophils % 2.8 D Basophils % 0.8 D Nucleated RBC % 0 Sodium 140 Potassium 3.7 Chloride 107 Carbon Dioxide 27 Anion Gap 6 L BUN 26 H Creatinine 1.0 Creat Clearance w eGFR 73.04 POC Glucometer 139 Random Glucose 123 H Calcium 8.3 L Phosphorus 3.0 Magnesium 1.9 Total Bilirubin 1.6 H AST 8 L ALT 18 Alkaline Phosphatase 82 Total Protein 6.4 Albumin 3.4 09/21/18 09/21/18 00:46 06:23 WBC RBC Hgb Hct MCV MCH MCHC RDW Plt Count MPV Absolute Neuts (auto) Neutrophils % Lymphocytes % Monocytes % Eosinophils % Basophils % Nucleated RBC % Sodium Potassium Chloride Carbon Dioxide Anion Gap BUN Creatinine Creat Clearance w eGFR POC Glucometer 168 193 Random Glucose Calcium Phosphorus Magnesium Total Bilirubin AST ALT Alkaline Phosphatase Total Protein Albumin Active Medications Generic Name Dose Route Start Last Admin Trade Name Freq PRN Reason Stop Dose Admin Cyclobenzaprine HCl 10 mg 09/21/18 06:00 09/21/18 06:24 Flexeril - PO 10 mg TID SEAN Administration Diazepam 5 mg 09/21/18 00:05 Valium - PO Q8H PRN MUSCLE SPASMS Docusate Sodium 100 mg 09/21/18 00:32 Colace - PO Q12H PRN CONSTIPATION Hydromorphone HCl 10 mg 09/21/18 00:32 09/21/18 00:36 Dilaudid Typewriter Assembler - BRIDGE CLUB MANAGER 09/27/18 15:40 10 mg [employer]GE [employer] MANAGER SEAN Administration Protocol Lactated Ringer's 1,000 mls @ 125 mls/hr 09/21/18 00:32 09/21/18 00:38 Lactated Ringers Solution IV 125 mls/hr ASDIR SEAN Administration Insulin Aspart 1 vial 09/21/18 07:00 09/21/18 06:24 Novolog Vial Sliding Scale - SQ 2 units ACHS [facility] Administration Protocol Ketorolac Tromethamine 30 mg 09/21/18 00:32 Toradol Injection - IVPUSH 09/23/18 14:38 Q6H PRN PAIN LEVEL 4 - 6 Non-Formulary Medication 1 drop 09/21/18 22:00 Travoprost [Travatan Z] OU HS SEAN Ondansetron HCl 4 mg 09/21/18 00:32 Zofran Injection IVPUSH Q6H PRN NAUSEA AND/OR VOMITING Polyethylene Glycol 17 gm 09/21/18 00:32 Miralax (For Daily Use) - PO DAILY PRN CONSTIPATION Promethazine HCl 12.5 mg 09/21/18 00:32 Phenergan Injection - IVPB Q6H PRN NAUSEA AND/OR VOMITING Senna 2 tab 09/21/18 00:32 Senna - PO HS PRN CONSTIPATION ASSESSMENT/PLAN: 73 yo Senegalese speaking M with PMH of DJD Spine, s/p surgery in 1995, DMII, glaucoma, Blindness L eye, BPH that was referred to the hospital for L4 L5 fusion due to severe back pain w/ radiculopathy radiating to LLE and weakness in LLE. POD1 L4-S1 posterior lumbar interbody fusion Intractable Back Pain 2/2 L4-5 radiculopathy : POD1 L4-S1 posterior lumbar interbody fusion. +flatus, tolerating PO -Spinal Surgery consultation -possible L4/5 fusion today 09/20/18 in afternoon -Had nausea/vomiting with Morphine -c/w Toradol 30 mg IV -c/w Cyclobenzaprine 5 mg -incentive spirometer -pain ctl for post op - dc dilauded BRIDGE CLUB MANAGER. start PO Oxy and tylenol -bowel regimen -fall risk precautions -zofran prn for nausea, Qtc 471 -PT eval -dc anderson DMII: -ISS ACHS -BGM ACHS -HgA1C 7 -hold home meds BPH: -no meds at home Glaucoma; -cont home meds F/E/N; dc LR 125cc/hr, PO hydration replete prn DM diet DVT PPX; hold SQH, restart when cleared surgery scds b/l Dispo: med surg anticipate dc within 24-48hr Visit type - Emergency Visit Emergency Visit: Yes ED Registration Date: 09/18/18 Care time: The patient presented to the Emergency Department on the above date and was hospitalized for further evaluation of their emergent condition. - New Patient This patient is new to me today: Yes Date on this admission: 09/21/18 - Critical Care Critical Care patient: No
--- NOTE | 2018-09-21 08:03 | PN ---
Progress Note (short form) - Note Progress Note: POD 1, s/p L4-S1 posterior lumbar interbody fusion Pt seen and examined this morning on AM rounds. States he is doing well, reports LLE pain which was present preop has resolved. Has not been oob this morning, though per RN pt was found on the ground last night after falling out of the bed. Pt reports he was confused when he woke, was unsure he had surgery already and was looking for his . Reports he did not fall out of bed, rather he slid down the slide of the bed. Reports no LOC or head trauma. Pain is well controlled today. Tolerating clears, has not had anything PO yet, anderson still in palce. Denies cp/sob, n/v/d, calf pain/edema. Vital Signs Temp 98.2 F 09/21/18 07:18 Pulse 91 H 09/21/18 07:18 Resp 20 09/21/18 04:59 BP 134/97 09/21/18 07:18 Pulse Ox 97 09/21/18 01:48 Intake & Output 09/20/18 09/20/18 09/21/18 11:59 23:59 11:59 Intake Total 2180 950 Output Total 400 200 Balance 1780 750 Intake: IV 2180 950 Lactated Ringers Solution 480 1,000 ml @ 120 mls/hr IV ASDIR SEAN Rx#: [id number] Lactated Ringers Solution 750 1,000 ml @ 125 mls/hr IV ASDIR SEAN Rx#: [id number] Oral 0 Output: Urine 250 200 Estimated Blood Loss 150 Other: Voiding Method Toilet Toilet # Unmeasured Voids Void 2 Bowel Movement No CBC, BMP 09/21/18 06:10 09/21/18 06:10 Gen: awake, alert, nad Resp: unlabored on RA, cta b/l anteriorly CV: rrr, s1s2 Abdo: soft, nt/nd, +bowel sounds Back: dressing c/d/i Neuro: b/l le 5/5 dorsi/plantarflexion, 5/5 hip flexion/extension, SILT b/l A/P: 73 y/o M w/ PMHx back pain, s/p surgery in 1995, DMII, glaucoma, BPH, now POD 1, s/p L4-S1 posterior lumbar interbody fusion for LLE radiculopathy/pain Afebrile, slightly to high 90s, low 100s. Pain controlled on SCALEHOUSE ATTENDANT. Remove anderson when oob ambulating Pain control per anesthesia Incentive spirometry encouraged OOB with assistance VS per routine Neurovascular checks per routine DVT prophylaxis with b/l scds Advance diet as tolerated Continue IVF until tolerating PO Bowel regimen as ordered message sent to Dr Wen regarding above
[2018-09-21 08:19] LABS: ALBUMIN 3.1 g/dl (3.4-5.0); ALK PHOS 105 U/L (45-117); ANION GAP 9 MMOL/L (8-16); BILIRUBIN,TOTAL 1.4 mg/dL (0.2-1); BLOOD UREA NITROGEN 21 mg/dL (7-18); CALCIUM 8.3 mg/dL (8.5-10.1); CHLORIDE 105 mmol/L (98-107); CO2 23 mmol/L (21-32); CREATININE 0.9 mg/dL (0.55-1.3); GLUCOSE,RANDOM 185 mg/dL (74-106); MAGNESIUM 1.7 mg/dL (1.8-2.4); PHOSPHOROUS 3.8 mg/dL (2.5-4.9); POTASSIUM 4.1 mmol/L (3.5-5.1); SGOT/AST 55 U/L (15-37); SGPT/ALT 60 U/L (13-61); SODIUM 136 mmol/L (136-145); TOT PROT 5.9 g/dl (6.4-8.2)
--- NOTE | 2018-09-21 08:50 | OP ---
DATE OF OPERATION: 09/20/2018 SURGEON: Ramiro Wen MD BRASS CHASER: Luis E Walsh PA-C PREOPERATIVE DIAGNOSIS: Disc prolapse L4-L5 with chronic S1 radicular L5 and S1 radiculopathy due to previous disc prolapse surgical resection and recurrent disc prolapse at L5-S1, associated segmental instability L4-L5, L5-S1 and associated kyphosis L4 lumbar spine. POSTOPERATIVE DIAGNOSIS: Disc prolapse L4-L5 with chronic S1 radicular L5 and S1 radiculopathy due to previous disc prolapse surgical resection and recurrent disc prolapse at L5-S1, associated segmental instability L4-L5, L5-S1 and associated kyphosis L4 lumbar spine. OPERATION PERFORMED: 1. Laminectomy L4. 2. Revision laminectomy L5. 3. Discectomy L4-L5, L5-S1. 4. Posterior lumbar interbody fusion L4-L5, L5-S1. 5. Insertion of interbody biomechanical device (cage) L4-L5, L5-S1. 6. Pedicle screw instrumentation L4-L5, L5-S1. 7. Posterolateral arthrodesis, L4-L5, L5-S1. 8. Sigala-Resendiz osteotomy L4-L5. 9. Use of bone marrow aspirate concentrate combined with autologous and expanded Allograft. 10. Use of intraoperative neuromonitoring and bi-plane fluoroscopy. 11. Complex wound closure 20 cm. ANESTHESIA: General. ANTIBIOTICS GIVEN: Kefzol 2 g, vancomycin 1 g, TXA as well as Decadron 10 mg given preoperatively. Intraoperatively at the time of seating instrumentation 1 g of Kefzol was given. BLOOD LOSS: Approximately 150 milk OPERATION IN DETAIL: Patient was correctly identified, brought into the operating room, placed prone on gel rolls under general anesthesia. All bony points were prepared appropriately. The skin was prepped with Betadine scrub solution, wiped with alcohol. DuraPrep applied, a window drape applied. Time-out was called. Imaging was available for intraoperative evaluation. An incision was made from the tip of the spinous process of L3 to the tip off the spinous process of S1. Subperiosteal dissection exposing the spinous process laminae as well as the facet joints onto the tips of the transverse processes at L4-L5-S1. Once this had been performed, appropriate self-retaining retractors inserted. These were released every half-hour. Muscles gently massaged to reinstate blood supply. The laminectomy L5 and L2 was performed. We used Kerrison upcuts as well as a Leksell rongeurs. Using osteotomes, the laughlin of the vertebral canal were imploded both the left and right hand side to open up the vertebral canal widely and show that the nerve roots were completely free and the exit through the foramina. It must be noted this was tedious because of the stuck-down adherent nerve root at L5-S1 on the right hand side. We started at L5-S1, gently freeing the nerve root of L5 appropriately. The disc was identified. Bipolar Bovie utilized to get rid of the epidural veins. The disc was identified, incision was made into the disc, and the disc was shaved to size 7, and an 8-mm 40-link spacer was filled with bone graft and impacted into the interdisc space. Excellent positioning noted on x-ray. Prior to the insertion of this device, the disc itself, which was cleared of all disc material by utilizing abimbola pituitary rongeurs and serrated curettes was packed with bone graft that was harvested and milled in a Mid[employer] Aurelio mill into the actual interbody space. The L4-L5 disc was then done in exactly the same way except in the measurements of the cage were size 13, and we seated a 12 shaver in the interbody disc space. All disc material was removed, and the disc itself also was packed with bone from the posterior elements and then, the 40-link cage inserted. Excellent positioning of the cage was noted on x-rays. Disc heights were maintained opened, and the foramina wide open. Once this had been completed, the pedicles of L4-L5-S1 were identified using anatomic guidelines. A 4-5 drill bit was utilized to drill each pedicle. Each pedicle was palpated with ball-tip feeler. The screws measured 40 x 6.5 precision spine instrumentation. The screws were tested, found to be well above the safe parameters that is in excess of 20 mA each screw. Once the screws were seated and x-rays were taken in AP and lateral to verify their positioning, the rods were contoured appropriate to the screw head tulips and this to establish lordosis. It was at this point that we decided to go ahead with the Sigala-Marcelino osteotomy because of the position of the spine on the table, and this was a complete transection of the pars interarticularis and the inferior facet both left and right hand side. The rods were seated, caps tightened with torque device. No cross-links utilized. Bone grafting posterolateral arthrodesis was a combination of bone enhanced with stem cells from the left posterior limb. A Jamshidi needle was placed in the ileum to harvest 60 mL of bone marrow. This was mixed with the actual bone graft appropriately. The wounds were thoroughly lavaged throughout. Nothing complicated on the dura. The dura remained fully intact and clear, and appearance of a Ania tree watching the nerves exit appropriately. Exparel was proceeded into the muscle for pain management postoperatively. Closure of muscle 1 Vicryl, fascia 1 Vicryl, subcutaneous 1 Vicryl and 2-0 Vicryl, skin khanh. No drains inserted. This completed a complex closure of 20 cm. OVERALL COMMENT: Operation went well, no complications. MD BEV Garrett/[id number]
[2018-09-21 09:35] LABS: BASO % 0.1 % (0-2.0); HEMATOCRIT 34.8 % (35.4-49); HEMOGLOBIN 12.1 GM/dL (11.7-16.9); LYMPH % 9.4 % (8-40); MCH 29.5 pg (25.7-33.7); MCHC 34.9 g/dl (32.0-35.9); MEAN CELL VOLUME 84.5 fl (80-96); MEAN PLT VOLUME 8.9 fl (7.5-11.1); MONO % 2.8 % (3.8-10.2); NEUT % 87.7 % (42.8-82.8); PLATELET COUNT 154 K/MM3 (134-434); RBC 4.12 M/mm3 (4.00-5.60); RDW 13.7 % (11.9-15.9); WHITE BLOOD COUNT 6.2 K/mm3 (4.0-10.0)
--- NOTE | 2018-09-21 09:52 | PN ---
Progress Note (short form) - Note Progress Note: POD 1 s/p L4-5 laminectomy/decompression. Pt has minor pain, well controlled on MEDICAL WRITER. No anesthetic issues/complications
[2018-09-21] MEDS ORDERED: MAGNESIUM OXIDE 400 MG TABLET (FP) PO ONE (09:59)
[2018-09-21] MEDS: ACETAMINOPHEN 500 MG TABLET (FP) PO SCH ×2 (12:34→17:50)
[2018-09-21] MEDS: oxyCODONE HCL 5 MG TABLET PO PRN ×2 (13:48→21:19)
--- NOTE | 2018-09-21 17:12 | PN ---
Teaching Attending Note Name of Resident: Jose Gupta ATTENDING PHYSICIAN STATEMENT I saw and evaluated the patient. I reviewed the resident's note and discussed the case with the resident. I agree with the resident's findings and plan as documented. SUBJECTIVE: Reports improvement of his lower back pain - no further radiation down leg. No fever/chills. No weakness/numbness. No bladder/bowel dysfunction. Tolerating oral intake. Passing flatus. OBJECTIVE: Afebrile, Hemodynamically Stable Last Vital Signs Temp Pulse Resp BP Pulse Ox 99.8 F H 108 H 22 H 130/79 98 09/21/18 16:16 09/21/18 16:16 09/21/18 16:16 09/21/18 16:16 09/21/18 09:00 HEENT - Atraumatic, Normocephalic Heart - S1, S2, RRR Lungs - clear to auscultation Abdomen - soft, non-tender. Bowel Sounds normal. Extremities - No calf tenderness. No edema. Neuro - Power normal all extremities. No sensory deficit. MS - Surgical Dressing in place along T/L spine. Laboratory Results - last 24 hr 09/21/18 09/21/18 09/21/18 00:46 06:10 06:10 WBC 6.2 RBC 4.12 Hgb 12.1 Hct 34.8 L MCV 84.5 MCH 29.5 MCHC 34.9 RDW 13.7 Plt Count 154 MPV 8.9 Absolute Neuts (auto) 5.5 Neutrophils % 87.7 H D Lymphocytes % 9.4 D Monocytes % 2.8 L Eosinophils % 0.0 D Basophils % 0.1 Nucleated RBC % 0 Sodium 136 Potassium 4.1 Chloride 105 Carbon Dioxide 23 Anion Gap 9 BUN 21 H Creatinine 0.9 Creat Clearance w eGFR 82.49 POC Glucometer 168 Random Glucose 185 H Calcium 8.3 L Phosphorus 3.8 Magnesium 1.7 L Total Bilirubin 1.4 H AST 55 H ALT 60 Alkaline Phosphatase 105 Total Protein 5.9 L Albumin 3.1 L 09/21/18 09/21/18 06:23 11:42 WBC RBC Hgb Hct MCV MCH MCHC RDW Plt Count MPV Absolute Neuts (auto) Neutrophils % Lymphocytes % Monocytes % Eosinophils % Basophils % Nucleated RBC % Sodium Potassium Chloride Carbon Dioxide Anion Gap BUN Creatinine Creat Clearance w eGFR POC Glucometer 193 201 Random Glucose Calcium Phosphorus Magnesium Total Bilirubin AST ALT Alkaline Phosphatase Total Protein Albumin Current Medications Generic Name Dose Route Start Last Admin Trade Name Freq PRN Reason Stop Dose Admin Acetaminophen 1,000 mg 09/21/18 12:00 09/21/18 12:34 Tylenol - PO 1,000 mg Q6HPO [facility] Administration Cyclobenzaprine HCl 10 mg 09/21/18 06:00 09/21/18 13:45 Flexeril - PO 10 mg TID SEAN Administration Docusate Sodium 100 mg 09/21/18 15:30 Colace - PO Q8H [facility] Insulin Aspart 1 vial 09/21/18 07:00 09/21/18 11:44 Novolog Vial Sliding Scale - SQ 4 units ACHS SEAN Administration Protocol Non-Formulary Medication 1 drop 09/21/18 22:00 Travoprost [Travatan Z] OU HS [facility] Ondansetron HCl 4 mg 09/21/18 00:32 Zofran Injection IVPUSH Q6H PRN NAUSEA AND/OR VOMITING Oxycodone HCl 5 mg 09/21/18 10:00 09/21/18 13:48 Roxicodone - PO 5 mg Q4H PRN Administration PAIN LEVEL 6-10 Polyethylene Glycol 17 gm 09/21/18 00:32 Miralax (For Daily Use) - PO DAILY PRN CONSTIPATION Senna 2 tab 09/21/18 22:00 Senna - PO HS [facility] ASSESSMENT/PLAN 73 year old male with history of DJD Spine s/p surgery 1995, DM 2, BPH, Glaucoma , Blindness L eye, sent to ED by Spinal Surgery for admission for severe back pain (radiating to LLE with progressive LLE weakness) prior to scheduled orthopedic surgery 09/20/18 1. Intractable Back Pain secondary to L4-5 radiculopathy s/p L4/5 laminectomy/decompression/L4-S1 posterior lumbar interbody fusion Transition EQUAL OPPORTUNITY ASSISTANT to oxycodone, flexeril. On Bowel regimen. PT Dispo - possible dispo 09/22 peding surgery eval. 2. DM 2 - Glyburide and Janumet held - Maintained on sliding scale. 3. Hypomagnesemia - repleted. DVT Px - as per Surgery team.
[2018-09-21] MEDS ORDERED: MAGNESIUM SULF 50% (8.12 MEQ/2 ML-1 GM VIAL) IVPB ONE (17:45)
[2018-09-21] MEDS: DOCUSATE SODIUM 100 MG CAPSULE (FP) PO SCH ×2 (17:51→23:30)
--- NOTE | 2018-09-21 18:53 | PN ---
Progress Note (short form) - Note Progress Note: Called to evaluate patient as RN reported he hasn't voided for a long duration of time. I performed bedside bladder scan which revealed 414 cc retained urine. Pt visibly distended and with suprapubic discomfort. Marrero inserted by myself with 200 cc drained so far. Continue to follow. Consider outpatient Urology referral as patient has h/o BPH and not on any medication or management.
[2018-09-21] MEDS ORDERED: INSULIN (NOVOLOG) ASPART 100 UNITS/ML 10ML VIAL ONE (21:09)
[2018-09-21] MEDS ORDERED: SENNOSIDES 8.6MG TABLET (FP) PO SCH (22:00)
[2018-09-21] MEDS ORDERED: PATIENT'S OWN MEDICATION (NON-FORMULARY) (Travoprost [Travatan Z] 1 DROP) OU SCH (22:00)
[2018-09-22] MEDS: ACETAMINOPHEN 500 MG TABLET (FP) PO SCH ×4 (01:00→14:03)
--- NOTE | 2018-09-22 02:20 | PN ---
Progress Note (short form) - Note Progress Note: Paged for Pt. having increased confusion and hallucinations. Pt. called his and son to come to the hospital ~1:30 am. Per family Pt. is more confused than he was yesterday. Pt. endorses seeing smoke in the room, kids running around in the room. Pt. denies any chest pain, shortness of breath, palpitations , sudden changes in vision, nausea or dizziness, paresthesias, or groin anesthesia. On physical exam VS: 99.5, 130/80 and HR of 120. Pt. did not appear to be in any acute distress. HR was tachycardic, RRR S1,S2 no murmurs, Lungs CTAB, CNII-XII unremarkable and unchanged since yesterday. Pt. when asked to draw a clock face was unable to reproduce a simple faced clock(he misplaced the numbers on the clock and struggled to position the pen as if he was confused). Per that family 2 days prior he would have been able to perform such an activity. Will get Head CT at insistence of family. Will continue to monitor vital signs and neurovascular checks. Will give 5mg Oxycodone to treat the pain( 7-8/10) which is likely causing the tachycardia. Pt.'s family at bedside and agreeable to plan.
[2018-09-22] MEDS: oxyCODONE HCL 5 MG TABLET PO PRN (02:36)
[2018-09-22] MEDS: CYCLOBENZAPRINE HCL 10 MG TABLET (FP) PO SCH (06:21)
[2018-09-22] MEDS: INSULIN SLIDING SCALE (NOVOLOG) 1 VIAL SQ SCH ×2 (06:22→11:45)
[2018-09-22 06:48] LABS: BASO % 0.1 % (0-2.0); EOS % 0.4 % (0-4.5); HEMATOCRIT 33.1 % (35.4-49); HEMOGLOBIN 11.7 GM/dL (11.7-16.9); LYMPH % 19.3 % (8-40); MCHC 35.3 g/dl (32.0-35.9); MEAN CELL VOLUME 84.8 fl (80-96); MEAN PLT VOLUME 8.8 fl (7.5-11.1); MONO % 6.5 % (3.8-10.2); NEUT % 73.7 % (42.8-82.8); PLATELET COUNT 139 K/MM3 (134-434); WHITE BLOOD COUNT 6.6 K/mm3 (4.0-10.0)
[2018-09-22 07:06] LABS: ALBUMIN 3.1 g/dl (3.4-5.0); ALK PHOS 96 U/L (45-117); ANION GAP 6 MMOL/L (8-16); BILIRUBIN,TOTAL 1.2 mg/dL (0.2-1); BLOOD UREA NITROGEN 14 mg/dL (7-18); CALCIUM 8.2 mg/dL (8.5-10.1); CHLORIDE 105 mmol/L (98-107); CO2 28 mmol/L (21-32); GLUCOSE,RANDOM 193 mg/dL (74-106); MAGNESIUM 1.6 mg/dL (1.8-2.4); POTASSIUM 3.8 mmol/L (3.5-5.1); SGOT/AST 28 U/L (15-37); SGPT/ALT 36 U/L (13-61); SODIUM 139 mmol/L (136-145); TOT PROT 5.7 g/dl (6.4-8.2)
[2018-09-22] MEDS ORDERED: MAGNESIUM SULF 50% (8.12 MEQ/2 ML-1 GM VIAL) IVPB ONE (07:43)
[2018-09-22] MEDS: DOCUSATE SODIUM 100 MG CAPSULE (FP) PO SCH ×2 (07:52→15:44)
--- NOTE | 2018-09-22 08:19 | PN ---
Progress Note (short form) - Note Progress Note: POD #2 Recovering s/p L4-S1 posterior lumbar interbody fusion. 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 Currently agitated and pulling at his anderson cath. Attempted trial of void yesterday starting at 11:30AM. Patient still hadn't voided at 18: 30. Bladder scanned --> urinary retention coupled with suprapubic tenderness. Anderson reinserted. Patient has h/o BPH. Used to take Flomax but stopped taking on his own. Per RN, patient increased confusion and having hallucinations. Patient called his and son to come to the hospital ~1:30 am. Per family he is more confused than he was yesterday. Patient fell (unwitnessed) POD #1 while attempting to get OOB. Denies LOC. MD ordered HEAD CT --> no evidence of acute intracranial hemorrhage, edema, midline shift, mass effect or skull fracture. Last Vital Signs Temp Pulse Resp BP Pulse Ox 99.5 F 113 H 20 133/73 97 09/22/18 06:04 09/22/18 06:04 09/22/18 06:04 09/22/18 06:04 09/21/18 21:00 CBC, BMP 03// 06:00 09/22/18 06:00 INR, PTT INR 1.18 (0.83-1.09) H 09/19/ 06:50 PE Gen: awake, alert (person/place/time). mildly agitated Resp: unlabored resp on RA CV: rrr Abd: soft, nt, nd, +bowel sounds Back: dressing c/d/i. No hematoma or drainage Neuro: b/l le 5/5 dorsi/plantarflexion, 5/5 hip flexion/extension, SILT b/l Problem List - Problems (1) Back pain at L4-L5 level Assessment/Plan: POD #2 s/p L4-S1 PLIF Flomax 0.4mg PO HS Incentive Spirometer OOB to chair PT DVT PPX via SCDs Regular diet Pain management PRN Above discussed with Dr. Reji Wen and agrees Code(s): M54.5 - LOW BACK PAIN
--- NOTE | 2018-09-22 08:23 | PN ---
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 Patient is currently agitated and mildly confused. Suggested to to orient the patient and open the shades to help his mental status. Otherwise dept of anesthesiology will sign off care at this time.
[2018-09-22] MEDS ORDERED: MAGNESIUM SULF 50% (8.12 MEQ/2 ML-1 GM VIAL) ONE (09:54)
[2018-09-22] MEDS ORDERED: CYCLOBENZAPRINE HCL 10 MG TABLET (FP) PO PRN (09:56)
--- NOTE | 2018-09-22 13:09 | DS ---
Physical Exam: SUBJECTIVE: Patient seen and examined at bedside. overnight was w/ confusion and hallucinations, which have now self resolved, events noted in Dr. Sesay note. Head CT was ordered and showed no acute pathology. POD2 L4-S1 posterior lumbar interbody fusion. much improvement of lower back pain w/ PO pain meds. No fever/chills. No weakness/numbness. No bowel dysfunction or n/v/d. +flatus, tolerating PO. Was noted w/ urinary retention,Patient has h/o BPH, flomax restarted, now resolved and pt passed TOV OBJECTIVE: Vital Signs Period Temp Pulse Resp BP Sys/Gonzalez Pulse Ox Last 24 Hr 98 F-99.8 F 88-120 18-22 106-133/60-80 92-97 PHYSICAL EXAM GENERAL: AOX3 NAD HEAD: NCAT EYES: Extraocular movements intact, sclera anicteric, conjunctiva clear. EARS, NOSE, THROAT: MMM NECK: Normal range of motion, supple without lymphadenopathy, JVD, or masses. LUNGS: CTAB HEART: RRR, normal S1 and S2 without murmur, rub or gallop. ABDOMEN: Soft, NTND normoactive bowel sounds, no guarding, no rebound, no masses. UPPER EXTREMITIES:No peripheral edema. LOWER EXTREMITIES: 2+ pulses, no peripheral edema. much improved ROM and power LLE, strength 5/5, No sensory deficit. NEUROLOGICAL: Cranial nerves II-XII intact. Normal speech. No sensory deficit. PSYCHIATRIC: Cooperative. Good eye contact. Appropriate mood and affect. SKIN: Warm, dry, normal turgor, no rashes or lesions noted. LABS Laboratory Results - last 24 hr 09/21/18 09/21/18 09/22/18 17:11 21:01 06:00 WBC 6.6 RBC 3.90 L Hgb 11.7 Hct 33.1 L MCV 84.8 MCH 30.0 MCHC 35.3 RDW 14.0 Plt Count 139 MPV 8.8 Absolute Neuts (auto) 4.9 Neutrophils % 73.7 Lymphocytes % 19.3 D Monocytes % 6.5 D Eosinophils % 0.4 D Basophils % 0.1 Nucleated RBC % 0 Sodium Potassium Chloride Carbon Dioxide Anion Gap BUN Creatinine Creat Clearance w eGFR POC Glucometer 305 204 Random Glucose Calcium Magnesium Total Bilirubin AST ALT Alkaline Phosphatase Total Protein Albumin 09/22/18 09/22/18 09/22/18 06:00 06:20 11:44 WBC RBC Hgb Hct MCV MCH MCHC RDW Plt Count MPV Absolute Neuts (auto) Neutrophils % Lymphocytes % Monocytes % Eosinophils % Basophils % Nucleated RBC % Sodium 139 Potassium 3.8 Chloride 105 Carbon Dioxide 28 Anion Gap 6 L BUN 14 Creatinine 1.0 Creat Clearance w eGFR 73.04 POC Glucometer 201 162 Random Glucose 193 H Calcium 8.2 L Magnesium 1.6 L Total Bilirubin 1.2 H AST 28 ALT 36 Alkaline Phosphatase 96 Total Protein 5.7 L Albumin 3.1 L HOSPITAL COURSE: Date of Admission:09/18/18 Date of Discharge: 09/22/18 73 yo Swedish speaking M with PMH of DJD Spine, s/p surgery in 1995, DMII (A1c 7 , 09/19/18), glaucoma, Blindness L eye, BPH that was referred to the hospital for L4 L5 fusion due to severe back pain w/ radiculopathy radiating to LLE and weakness in LLE. POD2 L4-S1 posterior lumbar interbody fusion Admitted for L4-S1 posterior lumbar interbody fusion for Intractable Back Pain 2 /2 L4-5 radiculopathy, now POD2. Surgery was w/o complication. pain ctl was achieved initially w/ dilauded FIELD SERVICE REP and then transitioned to PO Oxy 5 and tylenol. pain score is now 4-5/10. Morphine was avoided as pt had nausea/ vomiting with it. pt informed to avoid NSAIDs for 12-14wks post op, per neuro surgery recs. pt seen by PT and ambulated well. pt +flatus, tolerating PO. Was noted w/ urinary retention,Patient has h/o BPH, flomax restarted, now resolved and pt passed TOV Of note, pt was w/ intermittent confusion and hallucinations on night of POD2, which have now self resolved, pt is currently AOX3, neuro exam nl. pt was afebrile and w/o leukocytosis and labs unremarkable. Head CT was ordered and showed no acute pathology. AMS likely 2/2 post op anesthesia vs hospital associated delerium vs medication induced (oxy w/ flexeril? although pt has never had confusion w/ them in the past). pt informed to take flexiril only as needed and if possible to avoid taking together with oxycodone. now at baseline per at bedside #BPH: Used to take Flomax but stopped taking on his own. -Was noted w/ some urinary retention, flomax restarted, now resolved and pt passed TOV. pt informed to f/u w/ urology outpt pt is stable and ready for dc w/ appropriate f/u Minutes to complete discharge: 38 Discharge Summary Reason For Visit: BACK PAIN AT L4-L5 LEVEL,RADICULOPATHY Current Active Problems Back pain at L4-L5 level (Acute) Radiculopathy (Acute) Condition: Stable - Instructions Diet, Activity, Other Instructions: you came in with back pain and went for L4-S1 posterior lumbar interbody fusion. surgery was without complication. Dr Wen has left you detailed discharge instructions below. While in the hospital you became somewhat confused in the nighttime after your surgery. your Head CT scan was normal. This is likely due to the post operative effects of anesthesia and will go away. In addition, this may be worsened by taking oxycodone and flexeril together. Please take flexeril only as needed and if possible avoid taking together with oxycodone. Please resume your home meds Please resume taking flomax for your enlarged prostate, this will help you urinate Please follow up with your primary care physician within 1 week. Please follow up with Dr Wen within 1 week. Please follow up with your urologist or with urologist Dr Palmer within 1 week with regards to your prostate and taking flomax Dr Wen's Laminectomy with Fusion Post-Operative Instructions Diet: You may resume your regular diet. We recommend adding fiber supplements and eating plenty of fiber rich foods to prevent constipation which can be caused by taking narcotic pain medications. You may also use a stool softener such as DulcoEase. We recommend drinking plenty of water unless you are on fluid restrictions for another medical condition. If you are a Diabetic, make sure to keep your glucose well controlled as elevated glucose levels promote infection. Medications: You may resume your previous medications unless otherwise instructed by your surgeon, primary care doctor, or guest house manager. You have been prescribed a Narcotic pain medications. Driving or drinking alcohol is PROHIBITED while taking narcotic pain medications as is operating any heavy machinery. DO NOT take any anti-inflammatory medications (listed below) for the first 12 - 14 weeks following your surgery. Be sure to check your medications in the Medication Reconciliation section of this note to clarify any changes Aspirin (Bufferin, Matteo, Excedrin) Ibuprofen (Advil, Motrin, Nuprin) Ketoprofen (Actron, Orudis) Naproxen (Aleve) Wound Care: Leave your dressing in place until your follow up appointment. Keep your dressing clean and dry, if you notice it is soiled please call the office immediately for further instructions. No showers until cleared by your surgeon. Sponge bathe ONLY as soaking your incisions in water can lead to infection. DO NOT go into a bath tub, pool, hot tub, granados or ocean at any time until you have been cleared to do so by your surgeon. Submerging the incision can cause infection. Activity: DO NOT lift anything over 5 pounds, or bend or twist at the waist. DO walk as much as tolerated. You may go up and down stairs, but slowly. No running. Use assistive devices (walker, cane) until you feel safe to walk independently without them. *DO NOT sit longer than 20 - 30 minutes. You may increase the time as you become more comfortable. *DO NOT sit in low chairs. Your knees should always be lower than your hips. *You should NOT drive until seen in the office for your first post-operative visit. You may be a passenger for a short time (20 - 30 minutes) until you are able to tolerate longer distances. No sexual activity until discussed with your spine surgeon. General recommendations: If sitting, use only a straight back chair to ensure proper support not to exceed a half hour at a time. Lie only on a firm mattress, no couches or recliner chairs. You may lie on your back or side, but not on your abdomen. Absolutely no bending, stooping, pushing, lifting or straining. Avoid housework, especially vacuuming and sweeping. OK to cook, as long as you are not lifting anything heavier than 5 pounds. Learn proper body mechanics to maintain a neutral spine position. Increasing pain is a red flag telling you to rest. DO NOT: Engage in strenuous activity for at least 10 weeks after surgery. If you are given a brace to wear, it should be worn whenever you are up and out of bed. It should NOT be worn at night while you are sleeping. If you need to go to the bathroom during the night, you would not need to put the brace on. Call your surgeon or report to the ED if you develop: FEVERS OVER 101.5 CHEST PAIN, TROUBLE BREATHING, CALF PAIN DRAINAGE FROM THE INCISION (YELLOW/GREEN, FOUL SMELLING) CALL YOUR SURGEONS OFFICE TO SCHEDULE YOUR FOLLOW UP APPOINTMENT IN 1 WEEK. Referrals: Isidro Palmer MD [Staff Physician] - 1 Week Ramiro Wen MD [Primary Care Provider] - 1 Week Disposition: HOME - Home Medications Comprehensive Discharge Medication List: Ambulatory Orders Cyclobenzaprine HCl 10 mg PO DAILY 09/18/18 Glyburide 2.5 mg PO BID 09/18/18 Sitagliptin Phos/Metformin HCl [Janumet 50-1,000 mg Tablet] 1 each PO BID Travoprost [Travatan Z] 1 drop OU HS 09/18/18 Tamsulosin HCl [Flomax -] 0.4 mg PO DAILY@0830 30 Days #30 cap.er.24h 09/22/18 This patient is new to me today: Yes Date on this admission: 09/23/18 Emergency Visit: Yes ED Registration Date: 09/18/18 Care time: The patient presented to the Emergency Department on the above date and was hospitalized for further evaluation of their emergent condition. Critical Care patient: No - Discharge Referral Referred to [facility] Med P.C.: No
--- NOTE | 2018-09-22 14:17 | PN ---
Teaching Attending Note Name of Resident: Jose Gupta ATTENDING PHYSICIAN STATEMENT I saw and evaluated the patient. I reviewed the resident's note and discussed the case with the resident. I agree with the resident's findings and plan as documented. SUBJECTIVE:some nausea, poor po intake today. denies CP, SOB, fever, chills, V/C /D. states he has urge to use restroom OBJECTIVE: Last Vital Signs Temp Pulse Resp BP Pulse Ox 99.0 F 89 18 106/63 92 L 09/22/18 08:58 09/22/18 08:58 09/22/18 08:58 09/22/18 08:58 09/22/18 09:00 General NAD Abdomen soft NT/ND +BS ASSESSMENT AND PLAN: 73 year old male with history of DJD Spine s/p surgery 1995, DM 2, BPH, Glaucoma , Blindness L eye, sent to ED by Spinal Surgery for admission for severe back pain (radiating to LLE with progressive LLE weakness) prior to scheduled orthopedic surgery 09/20/18 1. Intractable Back Pain secondary to L4-5 radiculopathy - s/p L4/5 laminectomy/ decompression/L4-S1 posterior lumbar interbody fusion on 09/21. tolerated surgery well. spoke with surgery with plan to follow up as outpatient. pain control 2. URinary retention- anderson was placed back last night due to failure to void. anderson again removed this AM. has urge to urinate. if unable to pass urine. will need to d/c with anderson and can f/u with as outpatient. was on flomax at home and was not given here could likely exacerbate issue 3. nausea- perhaps discomfort from distended bladder. will re-assess later today and see if intake improved 4. confusion- was confused last night, possible sundowning vs medication induced as on standing flexeril. now at baseline per at bedside. will make flexeril prn and monitor. Head CT done is negative for acute pathology 5. Hypomagnesemia- resolved 6. DM- hold oral agents. iss and BGM 7. DVT ppx- EAM 8. plan to d/c home later today if able to tolerate diet. spoke with present at bedside. all questions answered. verbalized understanding and agreement
[2018-09-22 14:29] VITALS: BP 125/81; PULSE 126; TEMP 98.5
[2018-09-22] MEDS ORDERED: TAMSULOSIN HCL 0.4 MG CAP PO SCH (15:23)
[2018-09-22] MEDS ORDERED: TAMSULOSIN HCL 0.4 MG CAP PO ONE (15:31)
--- NOTE | 2018-09-22 16:36 | PATH ---
Surgical Pathology Report Patient Name: ASHIA KEYS Med. Rec. #: [id number] /Age/Gender: 1945 (Age: 73) / M Account: [id number] Location: [address] [place] [address]/[facility] Taken: 09/20/2018 Received: 09/21/2018 Reported: 09/22/2018 Physicians: Gonzales Wen M.D. Specimen(s) Received DISC L4-L5, S1 Clinical History Back pain and L4-L5 level radiculopathy Final Diagnosis DISC L4-L5, S1, DISCECTOMY: FRAGMENTS OF BONE AND FIBROCARTILAGINOUS TISSUE WITH DEGENERATIVE CHANGE. Electronically Signed Jeanne Hall M.D. Gross Description Received in formalin, labeled "disc L4-L5, S1" are multiple fibrotic, cartilaginous and bone tissue measuring 3.5 x 3.5 x 1 cm. in aggregate. Salesperson Hosiery sections are submitted in one cassette after decalcification. KEAGAN/09/21/2018 greg/09/21/2018
--- NOTE | 2018-09-22 16:51 | PN ---
Physical Exam: SUBJECTIVE: Patient seen and examined at bedside. overnight was w/ confusion and hallucinations, which have now self resolved, events noted in Dr. Sesay note. Head CT was ordered and showed no acute pathology. POD2 L4-S1 posterior lumbar interbody fusion. much improvement of lower back pain w/ PO pain meds, pain score is now 4-5/10. some nausea, poor po intake today. states he has urge to use restroom. +flatus. denies CP, SOB, fever, chills, V/C/D, weakness/ numbness. Attempted TOV yesterday but failed and pt noted noted w/ urinary retention on Bladder scan. Anderson reinserted, TOV today. Patient has h/o BPH, Used to take Flomax but stopped taking on his own. will restart flomax. OBJECTIVE: Vital Signs Period Temp Pulse Resp BP Sys/Gonzalez Pulse Ox Last 24 Hr 98 F-99.5 F 88-126 18-20 106-133/60-81 92-97 GENERAL: AOX3 NAD HEAD: NCAT EYES: Extraocular movements intact, sclera anicteric, conjunctiva clear. EARS, NOSE, THROAT: MMM NECK: Normal range of motion, supple without lymphadenopathy, JVD, or masses. LUNGS: CTAB HEART: RRR, normal S1 and S2 without murmur, rub or gallop. ABDOMEN: Soft, NTND normoactive bowel sounds, no guarding, no rebound, no masses. UPPER EXTREMITIES:No peripheral edema. LOWER EXTREMITIES: 2+ pulses, no peripheral edema. much improved ROM and power LLE, strength 5/5, No sensory deficit. NEUROLOGICAL: Cranial nerves II-XII intact. Normal speech. No sensory deficit. PSYCHIATRIC: Cooperative. Good eye contact. Appropriate mood and affect. SKIN: Warm, dry, normal turgor, no rashes or lesions noted. Laboratory Results - last 24 hr 09/21/18 09/21/18 09/22/18 17:11 21:01 06:00 WBC 6.6 RBC 3.90 L Hgb 11.7 Hct 33.1 L MCV 84.8 MCH 30.0 MCHC 35.3 RDW 14.0 Plt Count 139 MPV 8.8 Absolute Neuts (auto) 4.9 Neutrophils % 73.7 Lymphocytes % 19.3 D Monocytes % 6.5 D Eosinophils % 0.4 D Basophils % 0.1 Nucleated RBC % 0 Sodium Potassium Chloride Carbon Dioxide Anion Gap BUN Creatinine Creat Clearance w eGFR POC Glucometer 305 204 Random Glucose Calcium Magnesium Total Bilirubin AST ALT Alkaline Phosphatase Total Protein Albumin 09/22/18 09/22/18 09/22/18 06:00 06:20 11:44 WBC RBC Hgb Hct MCV MCH MCHC RDW Plt Count MPV Absolute Neuts (auto) Neutrophils % Lymphocytes % Monocytes % Eosinophils % Basophils % Nucleated RBC % Sodium 139 Potassium 3.8 Chloride 105 Carbon Dioxide 28 Anion Gap 6 L BUN 14 Creatinine 1.0 Creat Clearance w eGFR 73.04 POC Glucometer 201 162 Random Glucose 193 H Calcium 8.2 L Magnesium 1.6 L Total Bilirubin 1.2 H AST 28 ALT 36 Alkaline Phosphatase 96 Total Protein 5.7 L Albumin 3.1 L Active Medications Generic Name Dose Route Start Last Admin Trade Name Freq PRN Reason Stop Dose Admin Acetaminophen 1,000 mg 09/21/18 12:00 09/22/18 14:03 Tylenol - PO 1,000 mg Q6HPO [facility] Administration Cyclobenzaprine HCl 10 mg 09/22/18 09:56 Flexeril - PO Q8H PRN MUSCLE SPASMS Docusate Sodium 100 mg 09/21/18 15:30 09/22/18 15:44 Colace - PO 100 mg Q8H SEAN Administration Insulin Aspart 1 vial 09/21/18 07:00 09/22/18 11:45 Novolog Vial Sliding Scale - SQ Not Given ACHS [facility] Protocol Insulin Detemir 10 units 09/22/18 22:00 Levemir Vial SQ [facility] Non-Formulary Medication 1 drop 09/21/18 22:00 Travoprost [Travatan Z] OU [facility] Ondansetron HCl 4 mg 09/21/18 00:32 09/22/18 14:02 Zofran Injection IVPUSH 4 mg Q6H PRN Administration NAUSEA AND/OR VOMITING Oxycodone HCl 5 mg 09/21/18 10:00 09/22/18 02:36 Roxicodone - PO 5 mg Q4H PRN Administration PAIN LEVEL 6-10 Polyethylene Glycol 17 gm 09/21/18 00:32 Miralax (For Daily Use) - PO DAILY PRN CONSTIPATION Senna 2 tab 09/21/18 22:00 09/21/18 21:20 Senna - PO 2 tab HS SEAN Administration Tamsulosin HCl 0.4 mg 09/23/18 08:30 Flomax - PO DAILY@0830 [facility] ASSESSMENT/PLAN: 73 yo English speaking M with PMH of DJD Spine, s/p surgery in 1995, DMII (A1c 7 , 09/19/18), glaucoma, Blindness L eye, BPH that was referred to the hospital for L4 L5 fusion due to severe back pain w/ radiculopathy radiating to LLE and weakness in LLE. POD2 L4-S1 posterior lumbar interbody fusion Intractable Back Pain 2/2 L4-5 radiculopathy : POD2 L4-S1 posterior lumbar interbody fusion. Surgery was w/o complication. +flatus, poor PO intake and nausea this morning. spoke with surgery with plan to follow up as outpatient -Spinal Surgery consultation -Had nausea/vomiting with Morphine -avoid NSAIDs for 12-14wks post op, per neuro surgery recs. -c/w Cyclobenzaprine 5 mg prn -incentive spirometer -pain ctl for post op - off dilauded [employer]. c/w PO Oxy and tylenol -bowel regimen -fall risk precautions -zofran prn for nausea, Qtc 471 -PT eval - ambulated well -dc anderson, TOV, if retaining reinsert and may need to go home w/ anderson and will then f/u outpt w/ uro for removal Nausea- perhaps discomfort from distended bladder. will re-assess later today and see if intake improved Urinary retention- anderson was placed back last night due to failure to void. anderson again removed this AM. has urge to urinate. if unable to pass urine. will need to d/c with anderson and can f/u with as outpatient. -was on flomax at home and was not given here could likely exacerbate issue -will restart flomax BPH: Used to take Flomax but stopped taking on his own. -restart flomax confusion- pt was w/ intermittent confusion and hallucinations on night of POD2 , which have now self resolved, pt is currently AOX3, neuro exam nl. pt was afebrile and w/o leukocytosis and labs unremarkable. Head CT was ordered and showed no acute pathology. AMS likely 2/2 post op anesthesia vs hospital associated delerium vs medication induced (oxy w/ flexeril? although pt has never had confusion w/ them in the past). pt informed to take flexiril only as needed and if possible to avoid taking together with oxycodone. -now at baseline per at bedside. will make flexeril prn and monitor. DMII: -ISS ACHS -BGM ACHS -levemir 10HS -HgA1C 7 -hold home meds Glaucoma; -cont home meds F/E/N; PO hydration replete prn DM diet DVT PPX; hold SQH, restart when cleared surgery scds b/l EAM Dispo: med surg plan to d/c home later today or pawan AM if able to tolerate diet TOV, may need to go home w/ anderson and will then f/u outpt w/ uro for removal Visit type - Emergency Visit Emergency Visit: Yes ED Registration Date: 09/18/18 Care time: The patient presented to the Emergency Department on the above date and was hospitalized for further evaluation of their emergent condition. - New Patient This patient is new to me today: Yes Date on this admission: 09/22/18 - Critical Care Critical Care patient: No
[2018-09-22] MEDS ORDERED: INSULIN (LEVEMIR) 100 UNITS/ML UNITS SQ SCH (22:00)
[2018-09-23] MEDS ORDERED: TAMSULOSIN HCL 0.4 MG CAP PO SCH ×3 (08:30)
--- NOTE | 2018-09-30 16:06 | SURG ---
Surgery Pouncer Machine Note Pouncer Machine: Luis E Walsh PA-C Date of Service: 09/20/18 Diagnosis: Disc prolapse L4-L5 with chronic S1 radicular L5 and S1 radiculopathy due to previous disc prolapse surgical resection and recurrent disc prolapse at L5-S1, associated segmental instability L4-L5, L5-S1 and associated kyphosis L4 lumbar spine Procedure: 1. Laminectomy L4 2. Revision laminectomy L5 3. Discectomy L4-L5, L5-S1 4. Posterior lumbar interbody fusion L4-L5, L5-S1 5. Insertion of interbody biomechanical device (cage) L4-L5, L5-S1 6. Pedicle screw instrumentation L4-L5, L5-S1 7. Posterolateral arthrodesis, L4-L5, L5-S1 8. Sigala-Resendiz osteotomy L4-L5 9. Use of bone marrow aspirate concentrate combined with autologous and expanded allograft. 10. Complex wound closure 20cm I was present for the entirety of the operative procedure. For further detail, please refer to operative report. Visit type - Case Type Case Type: Scheduled - Emergency Emergency Visit: No - New patient This patient is new to me today: Yes Date on this admission: 09/30/18
== END 2018-09-22 19:19 | disposition home or self-care (01) | DRG 453 ==
LOC: JER 09:14 → JERBED 12:33 → J6S 14:33
PROVIDERS: ATTEND Internal Medicine
PROC: 0SG0071 Fusion of Lumbar Vertebral Joint with Autologous Tissue Substitute, Posterior Approach, Posterior Column, Open Approach (ICD-10-PCS; 2018-09-20)
PROC: 0ST20ZZ Resection of Lumbar Vertebral Disc, Open Approach (ICD-10-PCS; 2018-09-20)
PROC: 01NB0ZZ Release Lumbar Nerve, Open Approach (ICD-10-PCS; 2018-09-20)
PROC: 0SG30AJ Fusion of Lumbosacral Joint with Interbody Fusion Device, Posterior Approach, Anterior Column, Open Approach (ICD-10-PCS; 2018-09-20)
PROC: 0SG3071 Fusion of Lumbosacral Joint with Autologous Tissue Substitute, Posterior Approach, Posterior Column, Open Approach (ICD-10-PCS; 2018-09-20)
PROC: 0ST40ZZ Resection of Lumbosacral Disc, Open Approach (ICD-10-PCS; 2018-09-20)
PROC: 0QB00ZZ Excision of Lumbar Vertebra, Open Approach (ICD-10-PCS; 2018-09-20)
PROC: 07DR0ZZ Extraction of Iliac Bone Marrow, Open Approach (ICD-10-PCS; 2018-09-20)
PROC: 4A11X4G Monitoring of Peripheral Nervous Electrical Activity, Intraoperative, External Approach (ICD-10-PCS; 2018-09-20)
PROC: B01BZZZ Fluoroscopy of Spinal Cord (ICD-10-PCS; 2018-09-20)
PROC: 0SG00AJ Fusion of Lumbar Vertebral Joint with Interbody Fusion Device, Posterior Approach, Anterior Column, Open Approach (ICD-10-PCS; principal; 2018-09-20 17:00)
DX: M51.16 Intervertebral disc disorders with radiculopathy, lumbar region (principal); G92 Toxic encephalopathy; R44.3 Hallucinations, unspecified; M53.2X6 Spinal instabilities, lumbar region; M40.209 Unspecified kyphosis, site unspecified; M54.17 Radiculopathy, lumbosacral region; E11.9 Type 2 diabetes mellitus without complications; N40.0 Benign prostatic hyperplasia without lower urinary tract symptoms; H40.9 Unspecified glaucoma; R11.0 Nausea; E83.42 Hypomagnesemia; H54.40 Blindness, one eye, unspecified eye; R33.9 Retention of urine, unspecified; T48.1X5A Adverse effect of skeletal muscle relaxants [neuromuscular blocking agents], initial encounter; Y92.230 Patient room in hospital as the place of occurrence of the external cause; W18.39XA Other fall on same level, initial encounter
CPT/HCPCS: 36415; 70450-TC; 71045-TC-FY; 76000-TC-FY; 80053; 81003; 82248; 82962; 83036; 83735; 84100; 85025; 85610; 85730; 86850; 86900; 86901; 88304-TC; 88311-TC; 93005; 93010; 94010; 94760; 97116-GP; 97161-GP; 99284-25; J0131; J1644